=== PATIENT | male | born 1960 | race Caucasian/White ===

== ENCOUNTER 2018-08-29 16:36 | Observation (INO) | payer OTHER ==
--- NOTE | 2018-08-29 16:43 | ED ---
Chest Pain HPI - General Stated Complaint: Chest pain Source: RN notes reviewed, old records reviewed - History of Present Illness Initial Comments: This is a 57-year-old male to the ER for evaluation. Patient has a for evaluation regards to chest pain patient is accepted in transfer for chest pain. Patient has possible EKG changes. Patient denies significant history of heart disease. Patient denies any significant risk factors for heart disease. MD Complaint: chest pain -: hour(s) (Prior to arrival, patient is accepted in transfer from [facility]) Onset: during rest Pain Location: substernal Pain Radiation: none Severity: moderate Severity scale (1-10): 3 Quality: aching Consistency: now resolved Improves With: nothing Worsens With: nothing Anginal Symptoms: other (None) Other Symptoms: other (None) Treatments Prior to Arrival: aspirin, nitroglycerin - Related Data Home Medications Medication Instructions Recorded Confirmed Aspirin EC [Ecotrin] 325 mg PO DAILY 08/29/18 08/29/18 Atenolol [Tenormin] 25 mg PO BID 08/29/18 08/29/18 Atorvastatin [Lipitor] 80 mg PO DAILY 08/29/18 08/29/18 Nitroglycerin Sl Tabs [Nitrostat] 0.4 mg SUBLINGUAL Q5M PRN 08/29/18 08/29/18 Allergies Allergy/AdvReac Type Severity Reaction Status Date / Time No Known Allergies Allergy Verified 08/29/18 16:52 Review of Systems ROS Statement: Those systems with pertinent positive or pertinent negative responses have been documented in the HPI. ROS Other: All systems not noted in ROS Statement are negative. EKG Findings - EKG Comments: EKG Findings:: EKG shows sinus tachycardia rate 109, SD 1:30, QRS 04, QTc 460. A she does have lateral ST depression. Repeat EKG shows no morphological changes General Exam General appearance: alert, in no apparent distress Head exam: Present: atraumatic, normocephalic, normal inspection Eye exam: Present: normal appearance, PERRL, EOMI. Absent: scleral icterus, conjunctival injection, periorbital swelling ENT exam: Present: normal exam, mucous membranes moist Neck exam: Present: normal inspection. Absent: tenderness, meningismus, lymphadenopathy Respiratory exam: Present: normal lung sounds bilaterally. Absent: respiratory distress, wheezes, rales, rhonchi, stridor Cardiovascular Exam: Present: regular rate, normal rhythm, normal heart sounds. Absent: systolic murmur, diastolic murmur, rubs, gallop, clicks GI/Abdominal exam: Present: soft, normal bowel sounds. Absent: distended, tenderness, guarding, rebound, rigid Extremities exam: Present: normal inspection, full ROM, normal capillary refill. Absent: tenderness, pedal edema, joint swelling, calf tenderness Back exam: Present: normal inspection Neurological exam: Present: alert, oriented X3, CN II-XII intact Psychiatric exam: Present: normal affect, normal mood Skin exam: Present: warm, dry, intact, normal color. Absent: rash Course Vital Signs 08/29/18 08/29/18 08/29/18 16:52 19:08 19:41 Temperature 97.8 F Pulse Rate 107 H 101 H Respiratory 18 18 19 Rate Blood Pressure 157/112 143/103 O2 Sat by Pulse 100 97 Oximetry 08/29/18 20:08 Temperature Pulse Rate 87 Respiratory 17 Rate Blood Pressure 122/79 O2 Sat by Pulse 96 Oximetry - Reevaluation(s) Reevaluation #1: Record and transfer paperwork is reviewed Patient remains without chest pain Chest Pain MDM - MDM 57 male the ER for evaluation chest pain. Patient be admitted for anticoagulation, cardiac observation and treatment, troponin is mildly elevated 0.05, patient is a significant EKG changes Critical Care Time Critical Care Time: Yes Total Critical Care Time: 31 Disposition Clinical Impression: Chest pain, Unstable angina pectoris Disposition: ADMITTED IP TO THIS HOSP Condition: Fair Is patient prescribed a controlled substance at d/c from ED?: No
[2018-08-29 17:10] LABS: Basophils % (A) 0 %; Eosinophils # (A) 0.1 k/uL (0-0.7); Eosinophils % (A) 2 %; HCT 45.2 % (39.0-53.0); HGB 15.2 gm/dL (13.0-17.5); Lymphocytes % (A) 40 %; MCH 32.6 pg (25.0-35.0); MCHC 33.6 g/dL (31.0-37.0); Mean Platelet Volume 7.9; Monocytes # (A) 0.5 k/uL (0-1.0); Monocytes % (A) 6 %; Neutrophils # (A) 3.8 k/uL (1.3-7.7); Neutrophils % (A) 50 %; Platelet Count 140 k/uL (150-450); RBC 4.66 m/uL (4.30-5.90); RDW 13.5 % (11.5-15.5); WBC 7.5 k/uL (3.8-10.6)
[2018-08-29 17:19] LABS: INR 1.1 (<1.2); Prothrombin Time 10.9 sec (9.0-12.0)
[2018-08-29 17:24] LABS: ALT 20 U/L (21-72); AST 40 U/L (17-59); Albumin 3.8 g/dL (3.5-5.0); Alkaline Phosphatase 48 U/L (38-126); Anion Gap 8 mmol/L; Blood Urea Nitrogen 17 mg/dL (9-20); Carbon Dioxide 23 mmol/L (22-30); Chloride 108 mmol/L (98-107); Glucose 88 mg/dL (74-99); Magnesium 2.2 mg/dL (1.6-2.3); Sodium 139 mmol/L (137-145); Total Bilirubin 1.2 mg/dL (0.2-1.3); Total Protein 7.8 g/dL (6.3-8.2)
[2018-08-29 17:26] LABS: Potassium 5.4 mmol/L (3.5-5.1)
[2018-08-29 17:52] LABS: Creatine Kinase MB 2.8 ng/mL (0.0-2.4); Partial Thromboplastin Time 79.5 sec (22.0-30.0)
[2018-08-29 17:57] LABS: Troponin I 0.057 ng/mL (0.000-0.034)
[2018-08-29] MEDS ORDERED: NITROGLYCERIN SL TABS 0.4 MG TAB SUBLINGUAL PRN (18:07)
[2018-08-29] MEDS ORDERED: LABETALOL 5 MG/ML VIAL MDV IVP STA (18:58)
[2018-08-29 21:58] LABS: Creatine Kinase MB 2.2 ng/mL (0.0-2.4)
[2018-08-29] MEDS: METOPROLOL TARTRATE 25 MG TAB PO SCH (22:23)
[2018-08-29 22:24] LABS: Troponin I 0.052 ng/mL (0.000-0.034)
[2018-08-29] MEDS ORDERED: NALOXONE 0.4 MG/ML 1 ML VIAL IV PRN (23:42)
[2018-08-29] MEDS ORDERED: CALCIUM CARBONATE 500 MG CHEWABLE PO PRN (23:42)
[2018-08-29] MEDS ORDERED: ACETAMINOPHEN TAB 325 MG TAB PO PRN (23:42)
[2018-08-29] MEDS ORDERED: LORazepam 0.5 MG TAB PO PRN (23:42)
[2018-08-29] MEDS ORDERED: MAGNESIUM HYDROXIDE 2,400 MG/10 ML CUP PO PRN (23:42)
[2018-08-29] MEDS ORDERED: ONDANSETRON 4 MG/2 ML VIAL IVP PRN (23:42)
[2018-08-30] MEDS ORDERED: LACTULOSE 20 GM/30 ML CUP PO PRN
[2018-08-30] MEDS ORDERED: MELATONIN 3 MG TABLET PO PRN
[2018-08-30] MEDS: IPRATROPIUM-ALBUTEROL 3 ML NEB INHALATION SCH ×5 (00:02→19:19)
[2018-08-30] MEDS: NICOTINE 7MG/24HR PATCH TRANSDERM SCH ×2 (01:00→23:13)
--- NOTE | 2018-08-30 01:06 | HP ---
HISTORY AND PHYSICAL DATE OF ADMISSION: August 29, 2018. DATE OF SERVICE: August 29, 2018. PRESENTING COMPLAINT: Lightheaded. HISTORY OF PRESENTING COMPLAINT: This is a very pleasant 57-year-old patient who follows with Dr. Duane Young. The patient had a stent and coronary stent done back in 1988. Also chronic stable medical conditions include hypertension, hyperlipidemia. The patient had an episode of nearly passing out, felt lightheaded, dizzy today. No chest pain, no palpitation. No shortness of breath. The patient has had some wheezing though. The patient does smoke 2-3 cigarettes a day. Was a heavy smoker for a long time. The patient was seen at [facility]. Did chest x-ray that was unremarkable. EKG was found to have some ST-segment changes inferior lateral leads. The patient is transferred over. Patient's troponin was 0.058. The patient does feel a bit tired and run down. REVIEW OF SYSTEMS: CONSTITUTIONAL: Tired. HEENT decreased hearing. RESPIRATORY: Some wheezing. CARDIOVASCULAR: No chest pain. GASTROINTESTINAL none. GENITOURINARY none. MUSCULOSKELETAL none. DERMATOLOGICAL, HEMATOLOGIC, LYMPHATICS: none. PSYCHIATRY none. NEUROLOGICAL: None. PAST MEDICAL HISTORY: Of hypertension, hyperlipidemia, coronary artery disease with stent back in 1988. PAST SURGICAL HISTORY: Cardiac cath with stent. SOCIAL HISTORY: The patient currently does lumber work. Smoked a pack a day for close to 40 years. About averaged about a pack a day now down to 2 cigarettes a day. Lives with sister. FAMILY HISTORY: Reviewed, noncontributory presentation. HOME MEDICATIONS: 1. Nitrostat 0.4 sublingual q.5 p.r.n. 2. Lipitor 80 mg a day. 3. Tenormin 25 mg b.i.d. 4. Aspirin 325 mg daily. ALLERGIES: None. PHYSICAL EXAMINATION: VITAL SIGNS: Temperature 97.8, pulse 107, respiratory 18, blood pressure 157/112, pulse 100 percent on room air. GENERAL APPEARANCE: Thin build, sitting up, tired-appearing. EYES: Pupils equal. Conjunctivae normal. HEENT: External appearance of nose and ears normal. Oral cavity normal. NECK JVD not raised. Mass not palpable. RESPIRATORY: Effort slightly increased. LUNGS: Decreased breath sounds. Prolonged expiration. Some wheezing. CARDIOVASCULAR: First and second sounds, no edema. ABDOMEN: Soft, nontender. Liver and spleen not palpable. LYMPHATICS: No lymph nodes palpable in the neck or axilla. PSYCHIATRY: Alert and oriented x3. Mood and affect normal. NEUROLOGICAL: Pupils equal. Cranial nerves grossly intact. Power and sensation grossly intact. INVESTIGATIONS: Investigations from [facility] showed a white count of 8, hemoglobin 16.2, platelets 144, potassium 4.4, BUN 18, creatinine 1.0. Troponin 0.058. Chest x-ray reported to be negative. EKG shows ST-segment to be flipped and depressed in inferolateral leads. EKG from here was personally reviewed by me showing T-waves in the lateral leads. ASSESSMENT: 1. Acute coronary syndrome, possibly in a patient known coronary artery disease manifesting as new lightheadedness with some troponin leak with EKG changes. 2. Coronary artery disease with prior history of stent. 3. Essential hypertension. 4. Hyperlipidemia. 5. Chronic obstructive pulmonary disease exacerbation in a current smoker. 6. Chronic nicotine dependence, patient is a smoker. PLAN: The patient is started on bronchodilators, inhaled steroids. The patient is on aspirin and Lopressor. The patient currently has no chest pain. Off aspirin. Cardiology was consulted. The patient will probably need a cardiac catheterization. Care was discussed with the patient. Questions were answered. Copy to Dr. Duane Young. MMROSEMARIEL / MOOSEN: [id number] /
[2018-08-30] MEDS: ENOXAPARIN 40 MG/0.4 ML SYRINGE SQ SCH ×2 (01:42→21:27)
[2018-08-30 04:49] VITALS: BMI 23.1
[2018-08-30 05:04] LABS: Cholesterol 243 mg/dL (<200); HDL Cholesterol 29 mg/dL (40-60); LDL Cholesterol,Calculated 198 mg/dL (0-99); Triglycerides 81 mg/dL (<150)
[2018-08-30 05:49] LABS: Creatine Kinase MB 2.2 ng/mL (0.0-2.4)
[2018-08-30 06:21] LABS: Troponin I 0.041 ng/mL (0.000-0.034)
[2018-08-30] MEDS: METOPROLOL TARTRATE 25 MG TAB PO SCH ×2 (07:52→21:27)
[2018-08-30] MEDS: ASPIRIN 325 MG TAB PO SCH (07:52)
--- NOTE | 2018-08-30 09:04 | XR ---
EXAMINATION TYPE: XR chest 2V DATE OF EXAM: 08/30/2018 COMPARISON: NONE HISTORY: Shortness of breath. TECHNIQUE: Frontal and lateral views of the chest are obtained. FINDINGS: There are patchy interstitial opacities throughout most pronounced within the right lower lobe also seen on the lateral image in the retrocardiac airspace. No flattening of the diaphragms is seen to suggest underlying COPD. No bullous emphysematous changes are noted. Cardiomediastinal silhou ette is upper limits of normal in size. Osseous structures appear intact. No pleural effusion or pneu mothorax. IMPRESSION: Scattered patchy opacities most pronounced within the right lower lobe. These could be o n the basis of atypical pneumonitis, pulmonary edema or less likely groundglass pulmonary nodules. Sh ort-term follow-up is recommended to ensure resolution. If persistent CT would be recommended.
[2018-08-30] MEDS: BUDESONIDE 1 MG/2 ML NEBU INHALATION SCH ×2 (10:59→19:19)
--- NOTE | 2018-08-30 12:04 | ECHOF ---
Referral Reason:cad MEASUREMENTS -------- HEIGHT: 157.5 cm WEIGHT: 75.3 kg BP: 126/88 RVIDd: 2.9 cm (< 3.3) IVSd: 1.3 cm (0.6 - 1.1) LVIDd: 5.8 cm (3.9 - 5.3) LVPWd: 1.2 cm (0.6 - 1.1) IVSs: 1.4 cm LVIDs: 5.7 cm LVPWs: 1.2 cm LA Diam: 3.6 cm (2.7 - 3.8) LAESV Index (A-L): 43.87 ml/m Ao Diam: 3.3 cm (2.0 - 3.7) AV Cusp: 1.6 cm (1.5 - 2.6) LA Diam: 3.8 cm (2.7 - 3.8) MV EXCURSION: 16.659 mm (> 18.000) MV EF SLOPE: 69 mm/s (70 - 150) EPSS: 1.7 cm MV E Vasiliy: 0.75 m/s MV DecT: 113 ms MV A Vasiliy: 0.53 m/s MV E/A Ratio: 1.41 AR PHT: 417 ms RAP: 5.00 mmHg RVSP: 59.70 mmHg FINDINGS -------- Sinus rhythm. This was a technically adequate study. The left ventricular size is normal. There is mild concentric left ventricular hypertrophy. There is severe global hypokinesis of LV . Overall left ventricular systolic function is severely impair ed with, an EF < 20%. The right ventricle is normal in size. LA is severely dilated >40 ml/m2 The right atrial size is normal. The aortic valve is trileaflet and appears structurally normal. There is mild aortic regurgitation. Mild mitral annular calcification present. Mild mitral regurgitation is present. Moderate tricuspid regurgitation present. There is moderate pulmonary hypertension. The right sheyla tricular systolic pressure, as measured by Doppler, is 59.70mmHg. There is no pulmonic regurgitation present. The aortic root size is normal. There is no pericardial effusion. CONCLUSIONS -------- 1. Sinus rhythm. 2. The left ventricular size is normal. 3. There is mild concentric left ventricular hypertrophy. 4. There is severe global hypokinesis of LV . 5. Overall left ventricular systolic function is severely impaired with, an EF < 20%. 6. The right ventricle is normal in size. 7. LA is severely dilated >40 ml/m2 8. The right atrial size is normal. 9. There is mild aortic regurgitation. 10. Mild mitral annular calcification present. 11. Mild mitral regurgitation is present. 12. Moderate tricuspid regurgitation present. 13. There is moderate pulmonary hypertension. 14. There is no pulmonic regurgitation present. 15. The aortic root size is normal. 16. There is no pericardial effusion. MODEL BUILDER DISPLAY: Litzy James RDCS
--- NOTE | 2018-08-30 13:55 | P.CRDCN ---
History of Present Illness Consult date: 08/30/18 History of present illness: This is a 57-year-old gentleman with history of ischemic heart disease with previous stent placement that was done several years ago. Patient follows with Dr. Mcdonough regularly. He had an echocardiogram done in 2016 which showed an ejection fraction of 45-50%. He had a nuclear stress test in 2017 which showed a fixed defect involving the anterior and inferior byers without any reversible ischemia and an ejection fraction of about 30% suggestive of ischemic cardio myopathy. Patient has been clinically stable. Apparently recently, patient was having cold-like symptoms and was planning to see a physician. Yesterday he was doing something bending over, carrying some lumbar, patient started feeling dizzy and lightheaded. Denied any chest pain. Denied any nausea or vomiting. Patient went and sat for a while with relief of symptoms within 5 minutes. Because of ongoing symptoms, he went to see the primary care physician. EKG in the office showed abnormal findings and patient was referred to [facility] emergency room. In the emergency room, EKG was again abnormal and troponin values are elevated. Patient was transferred here for further evaluation. Since that one episode of dizziness, patient has been feeling well. His chest x-ray showed possible CHF versus pneumonia. His echo showed severely impaired LV function with an ejection fraction of 20%. At the time of my examination patient is free of any symptoms. My feeling is that patient has symptoms of congestive heart failure and shortness of breath. His dizziness could be from possible postural hypotension. I will add small dose of Lasix and Aldactone along with lisinopril. We'll may change metoprolol to Coreg. Patient may be a candidate for AICD implantation. Further recommendation will depend upon clinical course. May consider cardiac catheterization before AICD implantation to rule out any ischemic heart disease that is amenable for intervention Review of Systems As per HPI, and chart Past Medical History Past Medical History: No Reported History, Myocardial Infarction (PA) Last Myocardial Infarction Date:: 1988 History of Any Multi-Drug Resistant Organisms: None Reported Past Surgical History: Heart Catheterization With Stent Past Anesthesia/Blood Transfusion Reactions: No Reported Reaction Date of Last Stent Placement:: 1988 Past Psychological History: No Psychological Hx Reported Smoking Status: Current some day smoker Past Alcohol Use History: Daily Past Drug Use History: None Reported Medications and Allergies Home Medications Medication Instructions Recorded Confirmed Type Aspirin EC [Ecotrin] 325 mg PO DAILY 08/29/18 08/29/18 History Atenolol [Tenormin] 25 mg PO BID 08/29/18 08/29/18 History Atorvastatin [Lipitor] 80 mg PO DAILY 08/29/18 08/29/18 History Nitroglycerin Sl Tabs [Nitrostat] 0.4 mg SUBLINGUAL Q5M PRN 08/29/18 08/29/18 History Allergies Allergy/AdvReac Type Severity Reaction Status Date / Time No Known Allergies Allergy Verified 08/29/18 16:52 Physical Exam Vitals: Vital Signs Temp Pulse Pulse Resp BP BP Pulse Ox 08/30/18 12:14 74 08/30/18 12:02 78 08/30/18 12:00 97.3 F L 94 147/101 99 08/30/18 07:56 97.8 F 92 18 133/99 98 08/30/18 07:51 68 08/30/18 07:43 75 08/30/18 04:00 89 18 126/88 98 08/30/18 02:46 97.1 F L 71 16 122/78 99 08/29/18 23:00 84 119/91 08/29/18 22:00 123/86 08/29/18 21:00 126/77 97 08/29/18 20:08 87 17 122/79 96 08/29/18 20:00 83 124/91 97 08/29/18 19:41 19 08/29/18 19:08 101 H 18 143/103 97 08/29/18 19:00 101 H 143/103 99 08/29/18 18:51 89 18 126/88 98 08/29/18 18:44 98 157/112 98 08/29/18 16:52 97.8 F 107 H 18 157/112 100 Intake and Output 08/29/18 08/30/18 08/30/18 22:59 06:59 14:59 Other: Voiding Method Toilet Toilet Weight 75.45 kg GENERAL EXAM: Patient is alert and oriented and doesn't appear to be in any acute distress HEENT: Normocephalic. Normal reaction of pupils, equal size, normal range of extraocular motion. No erythema or exudates in the throat. NECK: No masses, no nuchal rigidity. CHEST: No chest wall deformity. LUNGS: Equal air entry with no crackles or wheeze. HEART: S1 and S2 normal with no audible mumurs or gallops. Regular rhythm, femorals equal on both sides.. ABDOMEN: No hepatosplenomegaly, normal bowel sounds, no guarding or rigidity. SKIN: No rashes CENTRAL NERVOUS SYSTEM: No focal deficits. EXTREMITIES: No cyanosis, clubbing or edema. Results 08/29/18 15:50 08/29/18 15:50 Cardiac Enzymes 08/29/18 08/29/18 08/29/18 Range/Units 15:50 15:50 21:14 AST 40 (17-59) U/L CK-MB (CK-2) 2.8 H 2.2 (0.0-2.4) ng/mL Troponin I 0.057 H* 0.052 H* (0.000-0.034) ng/mL 08/30/18 Range/Units 04:30 AST (17-59) U/L CK-MB (CK-2) 2.2 (0.0-2.4) ng/mL Troponin I 0.041 H* (0.000-0.034) ng/mL Coagulation 08/29/18 Range/Units 15:50 PT 10.9 (9.0-12.0) sec APTT 79.5 H (22.0-30.0) sec Lipids 08/30/18 Range/Units 04:30 Triglycerides 81 (<150) mg/dL Cholesterol 243 H (<200) mg/dL HDL Cholesterol 29 L (40-60) mg/dL CBC 08/29/18 Range/Units 15:50 WBC 7.5 (3.8-10.6) k/uL RBC 4.66 (4.30-5.90) m/uL Hgb 15.2 (13.0-17.5) gm/dL Hct 45.2 (39.0-53.0) % Plt Count 140 L (150-450) k/uL Comprehensive Metabolic Panel 08/29/18 Range/Units 15:50 Sodium 139 (137-145) mmol/L Potassium 5.4 H (3.5-5.1) mmol/L Chloride 108 H (98-107) mmol/L Carbon Dioxide 23 (22-30) mmol/L BUN 17 (9-20) mg/dL Creatinine 0.88 (0.66-1.25) mg/dL Glucose 88 (74-99) mg/dL Calcium 9.0 (8.4-10.2) mg/dL AST 40 (17-59) U/L ALT 20 L (21-72) U/L Alkaline Phosphatase 48 (38-126) U/L Total Protein 7.8 (6.3-8.2) g/dL Albumin 3.8 (3.5-5.0) g/dL Current Medications Generic Name Dose Route Start Last Admin Trade Name Freq PRN Reason Stop Dose Admin Acetaminophen 650 mg 08/29/18 23:42 Tylenol Tab PO Q6HR PRN Mild Pain or Fever > 100.5 Albuterol/Ipratropium 3 ml 08/29/18 23:43 08/30/18 12:02 Duoneb 0.5 Mg-3 Mg/3 Ml Soln INHALATION 3 ml RT-QID [facility] Administration Aspirin 325 mg 08/30/18 09:00 08/30/18 07:52 Aspirin PO 325 mg DAILY [facility] Administration Budesonide 1 mg 08/30/18 08:00 08/30/18 10:59 Pulmicort INHALATION Not Given RT-BID [facility] Calcium Carbonate/Glycine 1,000 mg 08/29/18 23:42 Tums PO Q4HR PRN Dyspepsia Enoxaparin Sodium 40 mg 08/30/18 00:00 08/30/18 01:42 Lovenox SQ 40 mg DAILY@2100 [facility] Administration Furosemide 20 mg 08/30/18 16:00 Lasix PO BID@0900,1600 [facility] Lactulose 20 gm 08/30/18 00:00 Cephulac PO DAILY PRN Constipation Lisinopril 5 mg 08/30/18 14:00 Zestril PO DAILY [facility] Lorazepam 0.5 mg 08/29/18 23:42 Ativan PO Q6HR PRN Anxiety Magnesium Hydroxide 2,400 mg 08/29/18 23:42 Milk Of Magnesia PO DAILY PRN Constipation Melatonin 3 mg 08/30/18 00:00 Melatonin PO HS PRN Insomnia Metoprolol Tartrate 25 mg 08/29/18 21:00 08/30/18 07:52 Lopressor PO 25 mg BID [facility] Administration Naloxone HCl 0.2 mg 08/29/18 23:42 Narcan IV Q2M PRN Opioid Reversal Nicotine 1 patch 08/30/18 00:00 08/30/18 01:00 Habitrol 7mg/24hr Patch TRANSDERM 1 patch DAILY@2100 [facility] Administration Nitroglycerin 0.4 mg 08/29/18 18:07 Nitrostat SUBLINGUAL Q5M PRN Chest Pain Ondansetron HCl 4 mg 08/29/18 23:42 Zofran IVP Q8HR PRN Nausea And Vomiting Spironolactone 12.5 mg 08/30/18 14:00 Aldactone PO DAILY [facility] Intake and Output 08/29/18 08/30/18 08/30/18 22:59 06:59 14:59 Other: Voiding Method Toilet Toilet Weight 75.45 kg 08/29/18 15:50 08/29/18 15:50 EKG Interpretations (text) Sinus rhythm with diffuse ST-T changes which appear to be nonspecific Assessment and Plan (1) Dizziness Current Visit: Yes Status: Acute Code(s): R42 - DIZZINESS AND GIDDINESS SNOMED Code(s): 565488178 (2) Ischemic cardiomyopathy Current Visit: Yes Status: Acute Code(s): I25.5 - ISCHEMIC CARDIOMYOPATHY SNOMED Code(s): 422545215 (3) Elevated troponin Current Visit: Yes Status: Acute Code(s): R74.8 - ABNORMAL LEVELS OF OTHER SERUM ENZYMES SNOMED Code(s): 136171043 (4) Hypertension Current Visit: Yes Status: Acute Code(s): I10 - ESSENTIAL (PRIMARY) HYPERTENSION SNOMED Code(s): 59604826 (5) Coronary arteriosclerosis in patient with history of previous myocardial infarction Current Visit: Yes Status: Acute Code(s): I25.10 - ATHSCL HEART DISEASE OF [place] CORONARY ARTERY W/O ANG PCTRS; I25.2 - OLD MYOCARDIAL INFARCTION SNOMED Code(s): 574892574977747 Plan: I will continue current medical therapy. I will add small dose of diuretics along with Aldactone and lisinopril. May switch from metoprolol to Coreg. Further recommendations depend upon clinical course. Patient may be candidate for AICD implantation. May consider putting Cardec catheterization to rule out any coronary artery disease that is amenable for intervention
[2018-08-30] MEDS: LISINOPRIL 5 MG TAB PO SCH (15:31)
[2018-08-30] MEDS: SPIRONOLACTONE 25 MG TAB PO SCH (15:31)
[2018-08-30] MEDS: FUROSEMIDE 20 MG TAB PO SCH (17:07)
--- NOTE | 2018-08-31 00:25 | PN ---
PROGRESS NOTE DATE OF SERVICE: 08/30/2018. PRESENTING COMPLAINT: Light headed. INTERVAL HISTORY: This patient presented with an episode of being lightheaded. Found to have EKG changes. A 2-D echo is showing an EF of less than 20%. Cardiology is contemplating cardiac catheterization/AICD. Sitting up in bed. Did tolerate some diet. REVIEW OF SYSTEMS: Done for constitutional, cardiovascular, GI, pulmonary; relevant findings as above. CURRENT MEDICATIONS: Reviewed, that include p.o. Lasix, KIKE inhibitor, Lopressor Aldactone. PHYSICAL EXAMINATION: Temperature 97.1, pulse 102, respiratory rate 18, blood pressure 130/87, pulse ox 99% on room air. GENERAL APPEARANCE: Sitting at the edge of bed, awake. EYES: Pupils equal. Conjunctivae normal. NECK: JVD not raised. Mass not palpable. Respiratory effort normal. LUNGS: Decreased breath sounds. Prolonged expiration. Less wheezing. CARDIOVASCULAR: First and second sounds normal. No edema. ABDOMEN: Soft, nontender. Liver and spleen not palpable. PSYCHIATRY: Alert and oriented x3. Mood and affect normal. INVESTIGATIONS: A 2D echo showed EF of 20%, severe tricuspid regurgitation. Troponins noted. LDL 198. ASSESSMENT: 1. Acute coronary syndrome in a patient with known coronary artery disease and troponin leak. The patient probably needs a cardiac catheterization. 2. Coronary artery disease, prior history of stent. 3. Essential hypertension. 4. Hyperlipidemia. 5. Chronic obstructive pulmonary disease exacerbation in a current smoker. 6. Chronic nicotine dependence, patient is a smoker. 7. Next ischemic cardiomyopathy, ejection fraction less than 20%. 8. Severe tricuspid regurgitation, nonrheumatic. 9. Secondary pulmonary hypertension due to congestive heart failure and chronic obstructive pulmonary disease. PLAN: Continue current medication and treatment plan. The patient will need a cardiac catheterization, also possibly an AICD. Care was discussed with the patient and at the bedside. Will let Cardiology determine final course of action. MMODL / IJN: [id number] /
[2018-08-31] MEDS: IPRATROPIUM-ALBUTEROL 3 ML NEB INHALATION SCH ×3 (08:21→15:45)
[2018-08-31] MEDS: BUDESONIDE 1 MG/2 ML NEBU INHALATION SCH (08:21)
[2018-08-31] MEDS: FUROSEMIDE 20 MG TAB PO SCH (08:50)
[2018-08-31] MEDS: METOPROLOL TARTRATE 25 MG TAB PO SCH (08:50)
[2018-08-31] MEDS: ASPIRIN 325 MG TAB PO SCH (08:50)
--- NOTE | 2018-08-31 10:29 | P.PN ---
Subjective Progress Note Date: 08/31/18 This 57-year-old gentleman was admitted to the hospital mainly with complaints of dizziness. Patient's proBNP is elevated. His echo showed severe LV dysfunction with ejection fraction of 20%. A nuclear stress test done last year showed a fixed defect in the anterior wall and inferior wall with an ejection fraction of 30%. It appears that patient has a chronic ischemic cardiomyopathy and congestive heart failure. Patient was initiated on beta mau, KIKE inhibitor and diuretics. Patient is feeling better. He and his blood pressures running low. We'll increase activity. Because of his ischemic cardiomyopathy. I discussed with him about the AICD implantation and also cardiac catheterization. Patient wants to talk to the family. Depending upon the patient's of the patient and family, further recommendations will be made Objective - Vital Signs Vital signs: Vital Signs Temp 96.7 F L 08/31/18 08:00 Pulse 56 L 08/31/18 08:37 Resp 18 08/31/18 08:00 BP 97/59 08/31/18 08:00 Pulse Ox 100 08/31/18 08:00 Intake & Output 08/30/18 08/31/18 08/31/18 18:59 06:59 18:59 Intake Total 360 120 Output Total 0 0 Balance 360 0 120 Weight 70.6 kg Intake: Oral 360 120 Output: Urine 0 0 Other: Voiding Method Toilet Toilet # Voids 1 - Exam GENERAL EXAM: Patient is alert and oriented and doesn't appear to be in any acute distress HEENT: Normocephalic. Normal reaction of pupils, equal size, normal range of extraocular motion. No erythema or exudates in the throat. NECK: No masses, no nuchal rigidity. CHEST: No chest wall deformity. LUNGS: Equal air entry with no crackles or wheeze. HEART: S1 and S2 normal with no audible mumurs or gallops. Regular rhythm, femorals equal on both sides.. ABDOMEN: No hepatosplenomegaly, normal bowel sounds, no guarding or rigidity. SKIN: No rashes CENTRAL NERVOUS SYSTEM: No focal deficits. EXTREMITIES: No cyanosis, clubbing or edema. - Labs CBC & Chem 7: 08/29/18 15:50 08/29/18 15:50 Assessment and Plan (1) Dizziness Current Visit: Yes Status: Acute Code(s): R42 - DIZZINESS AND GIDDINESS SNOMED Code(s): 973747445 (2) Ischemic cardiomyopathy Current Visit: Yes Status: Acute Code(s): I25.5 - ISCHEMIC CARDIOMYOPATHY SNOMED Code(s): 845949684 (3) Elevated troponin Current Visit: Yes Status: Acute Code(s): R74.8 - ABNORMAL LEVELS OF OTHER SERUM ENZYMES SNOMED Code(s): 207425492 (4) Hypertension Current Visit: Yes Status: Acute Code(s): I10 - ESSENTIAL (PRIMARY) HYPERTENSION SNOMED Code(s): 31865870 (5) Coronary arteriosclerosis in patient with history of previous myocardial infarction Current Visit: Yes Status: Acute Code(s): I25.10 - ATHSCL HEART DISEASE OF [place] CORONARY ARTERY W/O ANG PCTRS; I25.2 - OLD MYOCARDIAL INFARCTION SNOMED Code(s): 569912674277448 Plan: We'll increase his activity. Continue to monitor for any arrhythmias. Continue to check for any postural hypotension. He patient is stable he could be discharged home and be planned to have outpatient cardiac catheterization and also AICD implantation.
[2018-08-31 10:58] LABS: Calcium 9.3 mg/dL (8.4-10.2); Potassium 4.8 mmol/L (3.5-5.1)
[2018-08-31] MEDS: LISINOPRIL 5 MG TAB PO SCH (11:13)
[2018-08-31] MEDS: SPIRONOLACTONE 25 MG TAB PO SCH (11:13)
[2018-08-31 15:20] VITALS: BP 120/82; RESP 17; TEMP 97.4
[2018-08-31 16:04] VITALS: PULSE 85
[2018-09-01] MEDS ORDERED: FUROSEMIDE 20 MG TAB PO SCH (09:00)
--- NOTE | 2018-09-03 07:08 | DS ---
DISCHARGE SUMMARY DATE OF ADMISSION: 08/29/2018 DATE OF DISCHARGE: 08/31/2018 FINAL DIAGNOSES: 1. Acute coronary syndrome with underlying coronary artery disease. 2. Coronary artery prior stent. 3. Essential hypertension. 4. Hyperlipidemia. 5. Chronic obstructive pulmonary disease in a current smoker. 6. Chronic nicotine dependence, patient is a cigarette smoker. 7. Ischemic cardiomyopathy from systolic dysfunction, ejection fraction less than 20%. 8. Moderate tricuspid regurgitation, nonrheumatic. 9. Moderate pulmonary hypertension, secondary. HOSPITAL COURSE: This pleasant 57-year-old patient of Dr. Duane Young with a coronary stent back in 1988, presented with near syncope, lightheaded, dizzy. Patient does smoke a few cigarettes more so in the past. A 2D echo showed the EF as above, seen by Dr. Deras. An outpatient cardiac catheterization is being planned with AICD. Otherwise, patient is relatively stable. PHYSICAL EXAMINATION: Temperature 97.4, pulse 85, respiration 17, blood pressure 120/82, pulse ox 98% on room air room air. Lungs with decreased breath sounds, prolonged expiration. CARDIOVASCULAR: First and second sounds are normal. No edema. INVESTIGATIONS: Potassium 4.8, BUN and creatinine are normal. ProBNP is 5860. Patient did have a troponin leak of 0.041. LDL is 198. CONSULTATION: Dr. Deras from Cardiology. DISCHARGE MEDICATIONS: 1. Lipitor 80 mg a day. 2. Nitrostat 0.4 sublingual q.5 p.r.n. 3. Ventolin 1-2 puffs q.6 p.r.n. 4. Aspirin 81 mg a day. 5. Lasix 20 mg a day. 6. Atrovent HFA 2 puffs q.i.d. 7. Zestril 5 mg a day. 8. Lopressor 25 mg b.i.d. 9. Nicotine 7 patch daily. 10.Aldactone 12.5 mg p.o. daily. Follow up with Dr. Duane Young in 1 week. Follow up with Dr. Humberto Mcdonough on 09/12/2012. Cardiology will arrange for outpatient cardiac catheterization and AICD. MMODL / MOOSEN: [id number] /
== END 2018-08-31 17:00 | disposition home or self-care (01) ==
LOC: EC 16:36 → 3SCARD 18:07
PROVIDERS: ADMIT Hospitalist; ATTEND Hospitalist
DX: I24.9 Acute ischemic heart disease, unspecified (principal); I25.110 Atherosclerotic heart disease of native coronary artery with unstable angina pectoris; I11.0 Hypertensive heart disease with heart failure; I50.9 Heart failure, unspecified; F17.210 Nicotine dependence, cigarettes, uncomplicated; Z95.5 Presence of coronary angioplasty implant and graft; I25.5 Ischemic cardiomyopathy; I25.2 Old myocardial infarction; E78.5 Hyperlipidemia, unspecified; I36.1 Nonrheumatic tricuspid (valve) insufficiency; J44.1 Chronic obstructive pulmonary disease with (acute) exacerbation; I27.20 Pulmonary hypertension, unspecified; Z79.82 Long term (current) use of aspirin; Z79.899 Other long term (current) drug therapy
CPT/HCPCS: 99291 ×2; 96374 ×2; 96372 ×3; 36415; 94640 ×3; 93306; 83880; 80061; 80053; 80048; 82550 ×2; 82553 ×2; 83735; 84484 ×2; 85025; 85610; 85730; 71046; G0378 ×3; S4990; J1650

== ENCOUNTER 2018-09-27 06:17 | Day surgery (SDC) | payer OTHER ==
[~2018-09-27 06:17] MED LIST: ALPRAZolam 0.25 MG TAB PO PRN; ALPRAZolam 0.5 MG TAB PO PRN; ASPIRIN 325 MG TAB PO ONE; ASPIRIN 325 MG TAB PO STA; ATORVASTATIN 80 MG TAB PO STA; NITROGLYCERIN SL TABS 0.4 MG TAB SUBLINGUAL PRN; SODIUM CHLORIDE 0.9% 1,000 ML in EMPTY BAG 1 BAG IV ONE
[2018-09-27] MEDS ORDERED: SODIUM CHLORIDE 0.9% 1,000 ML IV ONE ×2 (07:10→09:00)
[2018-09-27] MEDS ORDERED: MIDAZOLAM 2 MG/2 ML VIAL IV ONE (07:42)
[2018-09-27] MEDS ORDERED: fentaNYL (PF) 50 MCG/ML 2 ML AMP IV ONE (07:42)
[2018-09-27] MEDS ORDERED: LIDOCAINE 1% INJ 10MG/ML (20 ML MDV) SQ ONE ×4 (07:44→08:18)
[2018-09-27] MEDS ORDERED: HEPARIN SODIUM 1,000 UN/ML (10ML VL) IV ONE (08:25)
--- NOTE | 2018-09-27 08:26 | CC ---
CARDIAC CATHETERIZATION REPORT INDICATION: Cardiomyopathy. PROCEDURE NOTE: After obtaining informed consent, left heart catheterization was attempted initially with the right femoral artery and subsequently with the left femoral artery. The patient has heavily calcified femoral arteries and the pulses are feeble. We were not able to obtain vascular access on either side. I am going to have Dr. Quigley the on-call adobe flex developer attempt a radial cath on him. MMDYLON / MOOSEN: [id number] /
[2018-09-27] MEDS ORDERED: IOPAMIDOL-370 125ML BTL INJ ONE ×2 (08:51→12:19)
[2018-09-27] MEDS ORDERED: VERAPAMIL 2.5 MG/ML 2 ML AMP ONE (11:21)
[2018-09-27] MEDS ORDERED: LIDOCAINE 1% INJ 10MG/ML (20 ML MDV) ONE (11:21)
[2018-09-27] MEDS ORDERED: MIDAZOLAM 2 MG/2 ML VIAL IVP ONE (11:56)
[2018-09-27] MEDS ORDERED: BIVALIRUDIN 250 MG in SODIUM CHLORIDE 0.9% 35 ML IV ONE (11:59)
[2018-09-27] MEDS ORDERED: BIVALIRUDIN BOLUS 250 MG/50 ML IV ONE (11:59)
[2018-09-27] MEDS ORDERED: VERAPAMIL SYRINGE (5 MG/10 ML) INTRAARTER ONE (12:00)
[2018-09-27] MEDS ORDERED: PRASUGREL 10 MG TAB ONE (12:01)
[2018-09-27] MEDS ORDERED: PRASUGREL 10 MG TAB PO ONE (12:03)
[2018-09-27] MEDS ORDERED: NITROGLYCERIN 1000MCG/10ML SYRINGE INTRACORON ONE (12:15)
[2018-09-27] MEDS ORDERED: NITROGLYCERIN SL TABS 0.4 MG TAB SUBLINGUAL PRN ×2 (12:48→12:49)
[2018-09-27] MEDS ORDERED: ATROPINE SULFATE 0.1 MG/ML 10ML SYRINGE IV PRN (12:49)
[2018-09-27] MEDS ORDERED: ZOLPIDEM 5 MG TAB PO PRN (12:49)
[2018-09-27] MEDS ORDERED: RX INFO: IV CONTRAST WAS GIVEN 1 EACH MISC MISCELLANE PRN (12:49)
[2018-09-27] MEDS ORDERED: MAG HYDROX/AL HYDROX/SIMETH 30 ML CUP PO PRN (12:49)
[2018-09-27] MEDS ORDERED: SODIUM CHLORIDE 0.9% 1,000 ML IV SCH (13:00)
[2018-09-27 14:08] VITALS: BMI 21.8
--- NOTE | 2018-09-27 14:14 | CC ---
CARDIAC CATHETERIZATION REPORT DATE OF SERVICE: 09/27/2018 PERFORMING PHYSICIAN: Feng Quigley MD, Decontaminator. PROCEDURE PERFORMED: 1. Selective right and left coronary angiogram. 2. Left heart catheterization. INDICATION: This is a pleasant 57-year-old gentleman with coronary artery disease and prior coronary artery stenting of the diagonal branch of the LAD as well as hypertension and dyslipidemia who was diagnosed recently with cardiomyopathy. He was seen by Dr. Mcdonough in the office and he was scheduled to undergo a heart catheterization to rule out any severe underlying coronary artery disease or progression in the severity of the coronary artery disease, behind his cardiomyopathy. The procedure was initially attempted from right and left groin approach and that was unsuccessful because of severe peripheral arterial disease and Dr. Mcdonough requested me to do the procedure from the right arm approach. COMPLICATION: None. LEVEL OF SEDATION: Moderate with sedation length of 18 minutes. PROCEDURE DESCRIPTION: After obtaining an informed consent, the patient was brought to the cardiac animal laboratory technician. The right radial artery was cannulated using micropuncture technique, the micropuncture wire passed easily, then I placed a 6-Dominican sheath 11 cm in the right radial artery. Subsequently, I gave the patient 2 mg of verapamil IA and 10,000 units of heparin IV. After that, I did perform selective right and left coronary angiogram using JR4 and JL3.5 catheters. Left heart catheterization was performed using 6-Dominican pigtail catheter. The procedure was completed without any complication. SELECTIVE CORONARY ANGIOGRAM: 1. The right coronary artery is a large caliber vessel and it is a dominant vessel and it is chronically occluded in the proximal portion. 2. The left main is a large caliber vessel with mild disease only. It bifurcates into the circumflex and left anterior descending artery. 3. The left circumflex is a large caliber vessel and it is a nondominant vessel. The proximal circumflex is tortuous with intermediate disease only. The mid circumflex appeared to be normal and the circumflex distally appeared to be normal as well. 4. The LAD, the proximal LAD has eccentric lesion seems to be in the range of 60%. The mid LAD has a long tubular lesion up to about 70%-80%. That lesion extends between the second and third diagonal of the LAD. The second diagonal of the LAD has a severe lesion in the proximal portion reaching its ostium, appeared to be in the range of 80%. The first diagonal branch is stented and the stent is occluded. The LAD distally appeared to be angiographically normal. HEMODYNAMICS: The left ventricular end-diastolic pressure was 6 mmHg without significant gradient across the aortic valve. CONCLUSION: 1. Chronic total occlusion of the right coronary artery which fills by collaterals from the left coronary artery system. 2. Mild disease involving the left main coronary artery which is a short left main. 3. Intermediate disease involving the proximal left circumflex coronary artery. 4. Intermediate disease involving the proximal LAD. Severe disease involving the mid LAD and severe disease involving the second diagonal branch of the LAD as well. 5. Successful stenting of the mid LAD using 3.25 x 28 mm Xience drug-eluting stent with good angiographic results and reduction of stenosis from 70% to 0% and without any complication. POSTPROCEDURE MANAGEMENT: 1. Dual anti-platelet therapy. 2. Risk factor modifications. 3. The patient needs to follow up with Dr. Mcdonough as an outpatient. MMODL / IJN: [id number] /
--- NOTE | 2018-09-27 15:14 | PTCA ---
PERCUTANEOUSTRANS CORORONARY ANGIOGRAPHY DATE OF SERVICE: 09/27/2018 PERFORMING PHYSICIAN: Feng Quigley MD, Health Safety Engineer. PROCEDURE PERFORMED: Successful stenting of the mid LAD using 3.25 x 28 mm Xience drug-eluting stent with good angiographic results and without any complication. INDICATION: This is a pleasant 67-year-old gentleman who sees Dr. Mcdonough in the office as an outpatient who was diagnosed recently with cardiomyopathy. He is also known to have coronary artery disease and prior stenting of the first diagonal branch of the LAD. He underwent heart catheterization earlier today and that showed severe disease involving the mid LAD. He was brought today to undergo an intervention of the LAD. APPROACH: Right radial artery. COMPLICATION: None. LEVEL OF SEDATION: Moderate with sedation length of 25 minutes. Anticoagulation was initiated using Angiomax. After that, I did engage the left main using JL3.5 guide. A whisper wire was used to wire the LAD. After that, I did balloon angioplasty of the mid LAD using 3.0 x 15 mm balloon, subsequently I deployed 3.25 x 28 mm Xience drug-eluting stent where the stent was positioned under fluoroscopy guidance and deployed under 14 atmospheres for 20 seconds. The following angiogram showed good angiographic results with reduction of stenosis from 70%-80% to 0%. The procedure was completed without any complication. POSTPROCEDURE MANAGEMENT: 1. Dual anti-platelet therapy. 2. Risk factor modifications. 3. Follow up with the patient. MMODL / IJN: [id number] /
[2018-09-27] MEDS: IPRATROPIUM 0.5 MG/2.5 ML NEBU INHALATION SCH ×2 (16:03→19:34)
[2018-09-27] MEDS ORDERED: NICOTINE 7MG/24HR PATCH TRANSDERM SCH (21:00)
[2018-09-27] MEDS: METOPROLOL TARTRATE 25 MG TAB PO SCH (22:09)
[2018-09-28 06:55] LABS: Basophils % (A) 0 %; Eosinophils # (A) 0.1 k/uL (0-0.7); Eosinophils % (A) 1 %; HGB 15.6 gm/dL (13.0-17.5); Lymphocytes % (A) 22 %; MCH 31.6 pg (25.0-35.0); MCHC 33.2 g/dL (31.0-37.0); MCV 95.4 fL (80.0-100.0); Mean Platelet Volume 6.8; Monocytes # (A) 0.8 k/uL (0-1.0); Monocytes % (A) 9 %; Neutrophils # (A) 5.8 k/uL (1.3-7.7); Neutrophils % (A) 65 %; Platelet Count 126 k/uL (150-450); RBC 4.93 m/uL (4.30-5.90); RDW 12.8 % (11.5-15.5); WBC 8.8 k/uL (3.8-10.6)
[2018-09-28 07:05] LABS: Anion Gap 7 mmol/L; Blood Urea Nitrogen 15 mg/dL (9-20); Calcium 9.2 mg/dL (8.4-10.2); Carbon Dioxide 26 mmol/L (22-30); Chloride 107 mmol/L (98-107); Glucose 92 mg/dL (74-99); Potassium 4.9 mmol/L (3.5-5.1); Sodium 140 mmol/L (137-145)
[2018-09-28] MEDS: IPRATROPIUM 0.5 MG/2.5 ML NEBU INHALATION SCH (07:54)
[2018-09-28] MEDS: METOPROLOL TARTRATE 25 MG TAB PO SCH (08:44)
[2018-09-28 08:50] VITALS: BP 153/74; PULSE 61; RESP 18; TEMP 97.6
[2018-09-28] MEDS ORDERED: ATORVASTATIN 80 MG TAB PO SCH (09:00)
[2018-09-28] MEDS ORDERED: ASPIRIN 81 MG PO SCH (09:00)
[2018-09-28] MEDS ORDERED: LISINOPRIL 5 MG TAB PO SCH (09:00)
[2018-09-28] MEDS ORDERED: SPIRONOLACTONE 25 MG TAB PO SCH (09:00)
[2018-09-28] MEDS ORDERED: FUROSEMIDE 20 MG TAB PO SCH (09:00)
[2018-09-28] MEDS ORDERED: PRASUGREL 10 MG TAB PO SCH (12:00)
--- NOTE | 2018-10-04 09:51 | DS ---
DISCHARGE SUMMARY DATE OF ADMISSION: 09/27/2018 DATE OF DISCHARGE: 09/28/2018 FINAL DIAGNOSIS: Cardiomyopathy. PROCEDURES PERFORMED: 1. Left heart catheterization. 2. Angioplasty with drug-eluting stent placement of LAD. HOSPITAL COURSE: This is a 57-year-old gentleman with known CAD status post prior angioplasty of diagonal branch who presented to us with new onset cardiomyopathy and congestive heart failure. He was advised to undergo cardiac catheterization to evaluate for coronary artery disease prior to AICD. The patient understood risks, benefits and alternatives. Initially, we attempted because of extensive peripheral vascular disease we could not. The patient went on to have radial cath that revealed chronically occluded right coronary artery with 70% stenosis involving the LAD. The patient underwent angioplasty of the same. Condition at the time of discharge, patient is chest pain free. Hemodynamically stable. Vital signs stable. Chest exam reveals good air entry bilaterally. Heart exam revealed first and second heart sounds, no gallop. Extremities did not reveal any edema. Peripheral pulses are palpable. Femoral site appears good. Medications are as charted. Patient will be discharged home on Plavix or Effient depending upon his insurance coverage. EKG: Post angioplasty EKG is free of ischemic changes. FOLLOWUP: Patient will be followed up in my office in a week's time. MMODL / IJN: [id number] /
== END 2018-09-28 10:45 | disposition home or self-care (01) ==
LOC: CATHCVL 06:17 → 3SCARD 12:23 → CATHCVL 09-28 10:45
PROVIDERS: ATTEND Internal Medicine Cardiovascular Disease
DX: I25.10 Atherosclerotic heart disease of native coronary artery without angina pectoris (principal); I25.82 Chronic total occlusion of coronary artery; R94.31 Abnormal electrocardiogram [ECG] [EKG]; I25.5 Ischemic cardiomyopathy; I11.0 Hypertensive heart disease with heart failure; I50.9 Heart failure, unspecified; E78.2 Mixed hyperlipidemia; F17.200 Nicotine dependence, unspecified, uncomplicated; Z95.5 Presence of coronary angioplasty implant and graft; Z79.82 Long term (current) use of aspirin; Z79.899 Other long term (current) drug therapy; Z82.49 Family history of ischemic heart disease and other diseases of the circulatory system
CPT/HCPCS: 94640 ×3; 93458; 80048; 85025; C9600; C1769 ×3; C1887; C1725; C1894 ×2; C1874; J2250; J2001; J3010; J1644; J0583; Q9967

== ENCOUNTER 2018-10-03 09:54 | Inpatient (IN) | payer OTHER ==
[2018-10-03] MEDS ORDERED: SODIUM CHLORIDE 0.9% 1,000 ML IV ONE (11:05)
[2018-10-03] MEDS ORDERED: ASPIRIN 81 MG ONE (11:20)
[2018-10-03] MEDS ORDERED: ALPRAZolam 0.25 MG TAB PO PRN (11:43)
[2018-10-03] MEDS ORDERED: ASPIRIN 325 MG TAB PO STA (11:43)
[2018-10-03] MEDS ORDERED: SODIUM CHLORIDE 0.9% 1,000 ML in EMPTY BAG 1 BAG IV ONE (11:43)
[2018-10-03] MEDS ORDERED: ALPRAZolam 0.5 MG TAB PO PRN (11:43)
[2018-10-03] MEDS ORDERED: NITROGLYCERIN SL TABS 0.4 MG TAB SUBLINGUAL PRN ×3 (11:43→13:24)
[2018-10-03] MEDS ORDERED: ATORVASTATIN 80 MG TAB PO STA (11:43)
[2018-10-03] MEDS ORDERED: HEPARIN SODIUM 1,000 UN/ML (10ML VL) ONE (12:26)
[2018-10-03] MEDS ORDERED: LIDOCAINE 1% INJ 10MG/ML (20 ML MDV) ONE (12:26)
[2018-10-03] MEDS ORDERED: VERAPAMIL 2.5 MG/ML 2 ML AMP ONE (12:26)
[2018-10-03] MEDS ORDERED: MIDAZOLAM 2 MG/2 ML VIAL IV ONE (12:45)
[2018-10-03] MEDS ORDERED: LIDOCAINE 1% INJ 10MG/ML (20 ML MDV) SQ ONE (12:46)
[2018-10-03] MEDS: VERAPAMIL SYRINGE (5 MG/10 ML) INTRAARTER ONE ×2 (12:47→13:19)
[2018-10-03] MEDS: NITROGLYCERIN 1000MCG/10ML SYRINGE INTRACORON ONE ×3 (12:54→13:16)
[2018-10-03] MEDS ORDERED: BIVALIRUDIN BOLUS 250 MG/50 ML IV ONE (13:05)
[2018-10-03] MEDS ORDERED: BIVALIRUDIN 250 MG in SODIUM CHLORIDE 0.9% 39 ML IV ONE (13:06)
[2018-10-03] MEDS ORDERED: MIDAZOLAM 2 MG/2 ML VIAL IVP ONE (13:09)
[2018-10-03] MEDS ORDERED: ZOLPIDEM 5 MG TAB PO PRN (13:24)
[2018-10-03] MEDS ORDERED: RX INFO: IV CONTRAST WAS GIVEN 1 EACH MISC MISCELLANE PRN (13:24)
[2018-10-03] MEDS ORDERED: MAG HYDROX/AL HYDROX/SIMETH 30 ML CUP PO PRN (13:24)
[2018-10-03] MEDS ORDERED: ATROPINE SULFATE 0.1 MG/ML 10ML SYRINGE IV PRN (13:24)
[2018-10-03] MEDS ORDERED: SODIUM CHLORIDE 0.9% 1,000 ML IV SCH (13:30)
--- NOTE | 2018-10-03 14:45 | CC ---
CARDIAC CATHETERIZATION REPORT DATE OF SERVICE: 10/03/2018 PERFORMING PHYSICIAN: Feng Quigley MD, Press Puller. PROCEDURE PERFORMED: 1. Selective left coronary angiogram. 2. Successful stenting of the mid LAD using 2.75 x 12 mm Xience drug-eluting stent with good angiographic results. INDICATION: This is a pleasant 57-year-old gentleman who sees Dr. Mcdonough in the office as an outpatient who underwent recently stenting of the mid LAD, presented to [facility] complaining of chest discomfort and ruled in for acute non ST elevation myocardial infarction. He was brought today to undergo a heart catheterization. APPROACH: Right radial artery. COMPLICATION: None. LEVEL OF SEDATION: Moderate with sedation length of 35 minutes. PROCEDURE DESCRIPTION: After obtaining an informed consent, the patient was brought to cardiac greenhouse laborer. The right radial artery was cannulated using micropuncture technique, then I placed a 6- [place] sheath in the right radial artery. After that, I gave the patient 2 mg of verapamil IA and anticoagulation was initiated using heparin. I did selective left coronary angiogram using JL3.5 diagnostic catheter. I did not do a selective right coronary angiogram because of its known chronic total occlusion of the right coronary artery. After that, I decided to intervene on the right coronary artery. Please see a separate paragraph for that. SELECTIVE CORONARY ANGIOGRAM: The left main is a large caliber vessel with mild disease only. It bifurcates into the circumflex and left anterior descending artery. The left circumflex is a large caliber vessel and it is a nondominant vessel. The proximal left circumflex is tortuous with intermediate disease only. The mid left circumflex appeared to be normal and the left circumflex distally appeared to be normal. The left circumflex in the proximal portion gives rise into a large OM branch which is stented with occluded stent. The LAD. The proximal LAD has eccentric lesion appeared to be in the range of 60%. The mid LAD, the stented and the stent is normal. There is what it seems to be distal edge dissection of the stent. The LAD distally appeared to be angiographically normal. ECA of the LAD. Coagulation was initiated using Angiomax. Subsequently, I did engage the left main using JL3.5 guide. A whisper wire was used to wire the LAD. After that, I did direct stenting of the lesion using 2.75 x 12 mm Xience drug-eluting stent where the stent was positioned under fluoroscopy guidance and deployed under fluoroscopy guidance as well. The following angiogram showed good angiographic results without any complication. The procedure was completed without any complication. CONCLUSION: 1. Distal edge dissection involving the mid LAD stent. 2. Successful stenting of the mid LAD using 2.75 x 12 mm Xience drug-eluting stent with good angiographic results. POSTPROCEDURE MANAGEMENT: 1. Dual anti-platelet therapy. 2. Risk factors modifications. 3. Follow up with the patient. MMODL / IJN: [id number] /
[2018-10-03] MEDS: IPRATROPIUM 0.5 MG/2.5 ML NEBU INHALATION SCH ×2 (16:35→19:57)
[2018-10-03] MEDS: METOPROLOL TARTRATE 25 MG TAB PO SCH (21:53)
[2018-10-03] MEDS: NICOTINE 7MG/24HR PATCH TRANSDERM SCH (22:40)
[2018-10-04] MEDS: IPRATROPIUM 0.5 MG/2.5 ML NEBU INHALATION SCH ×4 (08:37→19:18)
[2018-10-04] MEDS: LISINOPRIL 5 MG TAB PO SCH (09:05)
[2018-10-04] MEDS: SPIRONOLACTONE 25 MG TAB PO SCH (09:05)
[2018-10-04] MEDS: FUROSEMIDE 20 MG TAB PO SCH (09:05)
[2018-10-04] MEDS: CLOPIDOGREL 75 MG TAB PO SCH (09:05)
[2018-10-04] MEDS: ASPIRIN 81 MG PO SCH (09:05)
[2018-10-04] MEDS: METOPROLOL TARTRATE 25 MG TAB PO SCH ×2 (09:12→20:03)
[2018-10-04 14:04] VITALS: BMI 22.1
--- NOTE | 2018-10-04 14:12 | P.HPIM ---
History of Present Illness Terrell Shipley a 57 y.o.malewith a known history of hypertension, coronary artery disease and history of stent placement last by Dr. Mcdonough initially presented to [facility] with complaints of chest pain started One-day duration. Patient felt like the same chest pain to the back. Initial troponin level is 0.06 and repeat came back 2.698 and 2.086. Patient was started on heparin drip overnight. Currently patient denied any complaints of chest pain. Cardiology was consulted for further evaluation and they recommended to transfer the patient to [facility] for reevaluation of this stent by cardiac catheter and possible intervention Review of Systems CONSTITUTIONAL: No fever, no malaise, no fatigue. HEENT: No recent visual problems or hearing problems. Denied any sore throat. CARDIOVASCULAR: No orthopnea, PND, no palpitations, no syncope. PULMONARY: No shortness of breath, no cough, no hemoptysis. GASTROINTESTINAL: No diarrhea, no nausea, no vomiting, no abdominal pain. Normoactive bowel sounds. NEUROLOGICAL: No headaches, no weakness, no numbness. HEMATOLOGICAL: Denies any bleeding or petechiae. GENITOURINARY: Denies any burning micturition, frequency, or urgency. MUSCULOSKELETAL/RHEUMATOLOGICAL: Denies any joint pain, swelling, or any muscle pain. ENDOCRINE: Denies any polyuria or polydipsia. Past Medical History Past Medical History: Hyperlipidemia, Hypertension, Myocardial Infarction ([place]) Additional Past Medical History / Comment(s): recent dizziness, "rapid heart rate", Last Myocardial Infarction Date:: 1988 History of Any Multi-Drug Resistant Organisms: None Reported Past Surgical History: Heart Catheterization With Stent Additional Past Surgical History / Comment(s): one cardiac stent 09/27. STENT X1 10/03/2017 Past Anesthesia/Blood Transfusion Reactions: No Reported Reaction Date of Last Stent Placement:: 10/03/2018 Past Psychological History: No Psychological Hx Reported Smoking Status: Former smoker Past Alcohol Use History: None Reported Additional Past Alcohol Use History / Comment(s): last smoked 08/29/18. started smoking age 15, was< 1 PPD Past Drug Use History: None Reported - Past Family History Mother Family Medical History: Cancer Sister(s) Family Medical History: Cancer Medications and Allergies Home Medications Medication Instructions Recorded Confirmed Type Nitroglycerin Sl Tabs [Nitrostat] 0.4 mg SUBLINGUAL Q5M PRN 08/29/18 10/03/18 History Aspirin 81 mg PO DAILY #1 chewable 08/31/18 10/03/18 Rx Furosemide [Lasix] 20 mg PO DAILY #30 tab 08/31/18 10/03/18 Rx Lisinopril [Zestril] 5 mg PO DAILY #30 tab 08/31/18 10/03/18 Rx Metoprolol Tartrate [Lopressor] 25 mg PO BID #60 tab 08/31/18 10/03/18 Rx Nicotine 7Mg/24Hr Patch [Habitrol] 1 patch TRANSDERM DAILY@2100 #30 08/31/1811/20 Rx patch Spironolactone [Aldactone] 12.5 mg PO DAILY #30 tab 08/31/18 10/03/18 Rx Albuterol Inhaler [Ventolin Hfa 1 - 2 puff INHALATION RT-Q6H PRN 09/18/18 History Inhaler] Clopidogrel [Plavix] 75 mg PO DAILY 10/03/18 10/03/18 History Ipratropium [place] [Atrovent Hfa] 2 puff INHALATION RT-QID 10/03/18 10/03/18 History Allergies Allergy/AdvReac Type Severity Reaction Status Date / Time No Known Allergies Allergy Verified 10/03/18 17:14 Physical Exam Vitals: Vital Signs Temp Pulse Pulse Pulse Resp BP BP 10/04/18 13:18 46 L 10/04/18 13:08 46 L 10/04/18 11:40 97.4 F L 44 L 18 157/70 10/04/18 08:48 55 L 10/04/18 08:37 54 L 10/04/18 08:00 97.3 F L 48 L 18 141/73 10/04/18 04:00 97.1 F L 51 L 18 152/73 10/04/18 00:00 97.8 F 52 L 18 130/73 10/03/18 20:00 98.0 F 52 L 18 132/57 10/03/18 18:08 97.5 F L 54 L 18 154/75 10/03/18 17:54 52 L 18 10/03/18 16:03 47 L 16 147/74 10/03/18 15:25 61 16 156/79 10/03/18 14:50 56 L 16 145/73 10/03/18 14:09 55 L 16 132/67 Pulse Ox 10/04/18 13:18 10/04/18 13:08 10/04/18 11:40 100 10/04/18 08:48 10/04/18 08:37 99 10/04/18 08:00 100 10/04/18 04:00 99 10/04/18 00:00 98 10/03/18 20:00 98 10/03/18 18:08 99 10/03/18 17:54 10/03/18 16:03 100 10/03/18 15:25 10/03/18 14:50 98 10/03/18 14:09 99 Intake and Output 10/03/18 10/04/18 10/04/18 22:59 06:59 14:59 Intake Total 800 480 Output Total 300 Balance 500 480 Intake: Intake, IV Titration 200 Amount Sodium Chloride 0.9% 1, 200 000 ml @ 100 mls/hr IV . Q10H [facility] Rx#:[id number] Oral 600 480 Output: Urine 300 Other: Voiding Method Toilet Toilet # Voids 1 2 Weight 72.2 kg 72.2 kg GENERAL: The patient is alert and oriented x3, not in any acute distress. Well developed, well nourished. HEENT: Pupils are round and equally reacting to light. EOMI. No scleral icterus. No conjunctival pallor. Normocephalic, atraumatic. No pharyngeal erythema. No thyromegaly. CARDIOVASCULAR: S1 and S2 present. No murmurs, rubs, or gallops. PULMONARY: Chest is clear to auscultation, no wheezing or crackles. ABDOMEN: Soft, nontender, nondistended, normoactive bowel sounds. No palpable organomegaly. MUSCULOSKELETAL: No joint swelling or deformity. EXTREMITIES: No cyanosis, clubbing, or pedal edema. NEUROLOGICAL: Gross neurological examination did not reveal any focal deficits. SKIN: No rashes. Results CBC & Chem 7: 10/04/18 05:41 Thrombosis Risk Factor Assmnt - Choose All That Apply Any of the Below Risk Factors Present?: Yes Each Factor Represents 1 point: Age 41-60 years Other Risk Factors: No Other congenital or acquired thrombophilia - If yes, enter type in comment: No Thrombosis Risk Factor Assessment Total Risk Factor Score: 1 Thrombosis Risk Factor Assessment Level: Low Risk Assessment and Plan Assessment: Acute non-ST elevated CO with elevated troponin level Recent cardiac catheter patient stent placement Coronary disease with history of stent placement about a week ago Hypertension History of smoking quit 3 weeks ago Mild thrombocytopenia DVT prophylaxis. Patient is already on heparin drip Plan: This is a pleasant 57 years old male, presents with elevated troponins suspicious for acute coronary syndrome. Patient underwent underwent cardiac cath. He started the procedure well. Cardiology team following the pt. Labs and medication were reviewed.. Continue same treatment. Continue with symptomatic treatment. Resume home medication. Monitor lytes and vitals. DVT and GI prophylaxis. Further recommendations of the clinical course of the patient DVT prophylaxis: Subcutaneous heparin GI Prophylaxis: Pepcid Prognosis is guarded
--- NOTE | 2018-10-04 15:25 | P.PN ---
Subjective Progress Note Date: 10/04/18 This is a pleasant 57-year-old male patient with known history of hypertension, hyperlipidemia, family history of premature coronary artery disease, nicotine dependence, who was recently in the hospital and underwent a stent to the LAD. He presented on this occasion to [facility] with symptoms of chest discomfort and ruled in for non-Q-wave myocardial infarction. He was transferred here to [facility] where he underwent cardiac catheterization with successful stenting of the mid LAD. Patient was seen and examined this morning, feels well, denies any chest pain or difficulty in breathing. Blood pressure 114/60 with a heart rate in the 40s to 50s. Creatinine 0.8 today. Beta mau was held this morning because of bradycardia. Objective - Vital Signs Vital signs: Vital Signs Temp 97.4 F L 10/04/18 11:40 Pulse 46 L 10/04/18 13:18 Resp 18 10/04/18 11:40 BP 157/70 10/04/18 11:40 Pulse Ox 100 10/04/18 11:40 Intake & Output 10/03/18 10/04/18 10/04/18 18:59 06:59 18:59 Intake Total 905 480 Output Total 1000 Balance -95 480 Weight 73 kg 72.2 kg 72.2 kg Intake: IV 105 Sodium Chloride 0.9% 1, 0 000 ml @ 100 mls/hr IV . Q10H MORGAN Rx#:[id number] Intake, IV Titration 200 Amount Sodium Chloride 0.9% 1, 200 000 ml @ 100 mls/hr IV . Q10H MORGAN Rx#:[id number] Oral 600 480 Output: Urine 1000 Other: Voiding Method Toilet Toilet # Voids 1 2 - Exam PHYSICAL EXAMINATION: GENERAL: 57-year-old gentleman in no acute distress at the time HEENT: Head is atraumatic, normocephalic. Pupils equal, round. Sclera anicteric. Conjunctiva are clear. Mucous membranes of the mouth are moist. Neck is supple. There is no elevated jugular venous pressure. No carotid bruit is heard. HEART EXAMINATION: Heart S1, S2 normal. No murmur or gallop heard. CHEST EXAMINATION: Lungs are clear to auscultation and precussion. No chest wall tenderness is noted on palpation or with deep breathing. ABDOMEN: Soft, nontender. Bowel sounds are heard. No organomegaly noted. EXTREMITIES: 2+ peripheral pulses with no evidence of peripheral edema and no calf tenderness noted. Right radial artery conduit clean and dry, good distal pulse. Patient does have an area of ecchymosis at the right brachial area noted. NEUROLOGIC patient is awake, alert and oriented ?-3. . - Labs CBC & Chem 7: 10/04/18 05:41 Assessment and Plan Plan: Assessment and plan #1 non-ST elevation NE status post angioplasty and stenting of the LAD #2 recent LAD stenting #3 hypertension #4 hyperlipidemia #5 nicotine dependence Plan We will continue the patient on his current medications. Continue to observe for 24 hours and plan for possible discharge home in the morning if stable. DNP note has been reviewed, I agree with a documented findings and plan of care. Patient was seen and examined.
[2018-10-04] MEDS: FAMOTIDINE 20 MG/2 ML VIAL IV SCH (20:03)
[2018-10-04] MEDS: HEPARIN SODIUM,PORCINE 5,000 UNIT/ML 1 ML VIAL SQ SCH (20:06)
[2018-10-04] MEDS: NICOTINE 7MG/24HR PATCH TRANSDERM SCH (20:40)
[2018-10-05] MEDS: IPRATROPIUM 0.5 MG/2.5 ML NEBU INHALATION SCH ×2 (07:07→10:51)
[2018-10-05] MEDS: FAMOTIDINE 20 MG/2 ML VIAL IV SCH (08:29)
[2018-10-05] MEDS: LISINOPRIL 5 MG TAB PO SCH (08:29)
[2018-10-05] MEDS: CLOPIDOGREL 75 MG TAB PO SCH (08:29)
[2018-10-05] MEDS: HEPARIN SODIUM,PORCINE 5,000 UNIT/ML 1 ML VIAL SQ SCH (08:29)
[2018-10-05] MEDS: FUROSEMIDE 20 MG TAB PO SCH (08:29)
[2018-10-05] MEDS: ASPIRIN 81 MG PO SCH (08:29)
[2018-10-05] MEDS: METOPROLOL TARTRATE 25 MG TAB PO SCH (08:29)
[2018-10-05] MEDS: SPIRONOLACTONE 25 MG TAB PO SCH (08:29)
[2018-10-05 09:48] VITALS: RESP 18; TEMP 97.4
[2018-10-05 11:20] VITALS: BP 114/66; PULSE 60
--- NOTE | 2018-10-05 12:04 | P.PN ---
Subjective Patient is doing well. No chest discomfort dizziness lightheadedness or palpitations. He recently underwent coronary stenting. Heart rate 60 beats a minute afebrile 97.4F Blood pressure 114/66. His mercury normal respirations Groins of healed well is no hematoma no swelling or pain Breath sounds are clear no rhonchi no crackles Heart sounds S1 and S2 normal no murmurs impression History of recent ID about 1-2 weeks back Coronary stenting on this admission Plan discharge home on dual antiplatelet therapy Start statins May go home from a cardiac standpoint and follow with Dr. Kingsley Objective - Vital Signs Vital signs: Vital Signs Temp 97.4 F L 10/05/18 11:19 Pulse 60 10/05/18 11:55 Resp 18 10/05/18 11:19 BP 114/66 10/05/18 11:19 Pulse Ox 99 10/05/18 11:19 Intake & Output 10/04/18 10/05/18 10/05/18 18:59 06:59 18:59 Intake Total 960 20 240 Balance 960 20 240 Weight 72.2 kg 70.5 kg Intake: IV 20 0.9 20 Oral 960 240 Other: Voiding Method Toilet # Voids 2 - Labs CBC & Chem 7: 10/04/18 05:41
[2018-10-05] MEDS ORDERED: ATORVASTATIN 40 MG TAB PO SCH (12:15)
--- NOTE | 2018-10-05 17:54 | P.DS ---
Providers Date of admission: 10/03/18 11:12 Attending physician: Bull Glover Consults: 10/03/18 11:44 Consult Physician Urgent Consulting Provider: Feng Quigley Consult Reason/Comments: cath pt from [facility] Do you want consulting provider notified?: Already Contacted Placement Type Exists?: Yes 10/03/18 13:24 Consult Physician Routine Consulting Provider: [facility] Consult Reason/Comments: Post Interventional patient Do you want consulting provider notified?: Already Contacted Primary care physician: Stated None Hospital Course: diagnoses: Acute non-ST elevated ME with elevated troponin level, status post stenting of LAD Recent cardiac catheter patient and stent placement Coronary disease with history of stent placement about a week ago Hypertension History of smoking quit 3 weeks ago Mild thrombocytopenia Terrell Shipley a 57 y.o.malewith a known history of hypertension, coronary artery disease and history of stent placement last by Dr. Mcdonough initially presented to [facility] with complaints of chest pain started One-day duration. Patient felt like the same chest pain to the back. Initial troponin level is 0.06 and repeat came back 2.698 and 2.086. Patient was started on heparin drip overnight. Currently patient denied any complaints of chest pain. Cardiology was consulted for further evaluation and they recommended to transfer the patient to [facility] for reevaluation of this stent by cardiac catheter and possible intervention. At the current hospital patient underwent successful stenting of the mid LAD with drug-eluting stent.after the procedure patient denies any chest pain or dyspnea. No dizziness or change in urine or bowel habits. No fever.patient has been evaluated by husker operator and cleared him for discharge. Patient problems and management plan were discussed with him and he verbalized understanding and acceptance. Patient states that he has aspirin and Plavix at home and he was taking them as instructed. Patient was found stable and can be discharged home however he needs follow-up as an outpatient.patient agrees with the appointments with his husker operator and a its timing physical exam Gen.: Patient alert awake and oriented X 3, NOT IN DISTRESS CVS: s1-s2, RRR, no murmur CHEST:bilateral CTA, no wheezing or crepitation Abdomen: Soft, no tenderness, no distention, positive bowel sounds Extremities: No leg edema or induration Time spent more than 35 minutes Plan - Discharge Summary Discharge Rx Participant: No New Discharge Prescriptions: New Atorvastatin [Lipitor] 40 mg PO HS #90 tablet Famotidine [Pepcid] 20 mg PO BID #14 tab Continue Nitroglycerin Sl Tabs [Nitrostat] 0.4 mg SUBLINGUAL Q5M PRN PRN Reason: CHEST PAIN Aspirin 81 mg PO DAILY #1 chewable Furosemide [Lasix] 20 mg PO DAILY #30 tab Lisinopril [Zestril] 5 mg PO DAILY #30 tab Metoprolol Tartrate [Lopressor] 25 mg PO BID #60 tab Nicotine 7Mg/24Hr Patch [Habitrol] 1 patch TRANSDERM DAILY@2100 #30 patch Spironolactone [Aldactone] 12.5 mg PO DAILY #30 tab Albuterol Inhaler [Ventolin Hfa Inhaler] 1 - 2 puff INHALATION RT-Q6H PRN PRN Reason: Wheezing Clopidogrel [Plavix] 75 mg PO DAILY Ipratropium [place] [Atrovent Hfa] 2 puff INHALATION RT-QID Discharge Medication List Nitroglycerin Sl Tabs [Nitrostat] 0.4 mg SUBLINGUAL Q5M PRN 08/29/18 [History] Aspirin 81 mg PO DAILY #1 chewable 08/31/18 [Rx] Furosemide [Lasix] 20 mg PO DAILY #30 tab 08/31/18 [Rx] Lisinopril [Zestril] 5 mg PO DAILY #30 tab 08/31/18 [Rx] Metoprolol Tartrate [Lopressor] 25 mg PO BID #60 tab 08/31/18 [Rx] Nicotine 7Mg/24Hr Patch [Habitrol] 1 patch TRANSDERM DAILY@2100 #30 patch [Rx] Spironolactone [Aldactone] 12.5 mg PO DAILY #30 tab 08/31/18 [Rx] Albuterol Inhaler [Ventolin Hfa Inhaler] 1 - 2 puff INHALATION RT-Q6H PRN [History] Clopidogrel [Plavix] 75 mg PO DAILY 10/03/18 [History] Ipratropium [place] [Atrovent Hfa] 2 puff INHALATION RT-QID 10/03/18 [History] Atorvastatin [Lipitor] 40 mg PO HS #90 tablet 10/05/18 [Rx] Famotidine [Pepcid] 20 mg PO BID #14 tab 10/05/18 [Rx] Follow up Appointment(s)/Referral(s): Cuco Mcdonough MD [STAFF PHYSICIAN] - 10/11/18 3:15 pm () Patient Instructions/Handouts: *Surgery [facility] - After Heart Catheterization - Air Gun Operator Instructions, Heart Attack (DC), Left Heart Catheterization (DC) Care Plan Goals (MU): cardiac diet activity is limited till you see your doctor Discharge Disposition: HOME SELF-CARE
[2018-10-05] MEDS ORDERED: FAMOTIDINE 20 MG TAB PO SCH (21:00)
== END 2018-10-05 15:23 | disposition home or self-care (01) | DRG 246 ==
LOC: 3SCARD 11:12
PROVIDERS: ADMIT Internal Medicine; ATTEND Internal Medicine
PROC: 027034Z Dilation of Coronary Artery, One Artery with Drug-eluting Intraluminal Device, Percutaneous Approach (ICD-10-PCS; principal; 2018-10-03 11:05)
PROC: B2111ZZ Fluoroscopy of Multiple Coronary Arteries using Low Osmolar Contrast (ICD-10-PCS; 2018-10-03 11:05)
DX: I21.4 Non-ST elevation (NSTEMI) myocardial infarction (principal); I25.42 Coronary artery dissection; D69.6 Thrombocytopenia, unspecified; I25.82 Chronic total occlusion of coronary artery; I25.10 Atherosclerotic heart disease of native coronary artery without angina pectoris; I10 Essential (primary) hypertension; E78.5 Hyperlipidemia, unspecified; I25.2 Old myocardial infarction; R00.1 Bradycardia, unspecified; T44.7X5A Adverse effect of beta-adrenoreceptor antagonists, initial encounter; F17.201 Nicotine dependence, unspecified, in remission; Z79.82 Long term (current) use of aspirin; Z79.02 Long term (current) use of antithrombotics/antiplatelets; Z79.899 Other long term (current) drug therapy; Z95.5 Presence of coronary angioplasty implant and graft; Z80.9 Family history of malignant neoplasm, unspecified; Z82.49 Family history of ischemic heart disease and other diseases of the circulatory system
CPT/HCPCS: 82565; 93454; 94640; 94760; C1874

== ENCOUNTER 2019-05-31 08:38 | Day surgery (SDC) | payer OTHER ==
[2019-05-28 16:04] VITALS: BMI 24.8
[~2019-05-31 08:38] MED LIST changes: -ALPRAZolam 0.25 MG TAB PO PRN; -ALPRAZolam 0.5 MG TAB PO PRN; -ASPIRIN 325 MG TAB PO ONE; -ASPIRIN 325 MG TAB PO STA; -ATORVASTATIN 80 MG TAB PO STA; +LACTATED RINGERS 1,000 ML IV SCH; +LIDOCAINE 1% 20 ML VIAL (10MG/ML) FOR IV START INTRADERMA PRN; -NITROGLYCERIN SL TABS 0.4 MG TAB SUBLINGUAL PRN; -SODIUM CHLORIDE 0.9% 1,000 ML in EMPTY BAG 1 BAG IV ONE
[2019-05-31 09:15] VITALS: TEMP 97.5
[2019-05-31] MEDS ORDERED: PROPOFOL 10 MG/ML 20 ML VIAL IV ONE (09:42)
--- NOTE | 2019-05-31 10:09 | P.PCN ---
Date of Procedure: 05/31/19 Procedure(s) Performed: BRIEF HISTORY: Patient is a 58-year-old pleasant male, scheduled for an elective colonoscopy as a part of evaluation of prior history of colon polyps. Last colonoscopy was 3 years ago. PROCEDURE PERFORMED: Colonoscopy with snare polypectomy. PREOPERATIVE DIAGNOSIS: History of colon polyps. IV sedation per Anesthesia. PROCEDURE: After informed consent was obtained, the patient, was brought into the endoscopy unit. IV sedation was administered by Anesthesia under continuous monitoring. Digital rectal examination was normal. Initially the Olympus CF-160 flexible video colonoscope was then inserted in the rectum, gradually advanced into the cecum without any difficulty. Careful examination was performed as the scope was gradually being withdrawn. Ileocecal valve and the appendiceal orifice were visualized and appeared normal. Prep was excellent. Mucosa of the cecum, ascending colon, appeared normal. In the transverse colon there was a 5 mL polyp that was removed by snare polypectomy. Rest of the transverse colon, descending colon, sigmoid colon, and rectum appeared normal. There were 2 small polyps in the sigmoid colon H measuring 3-4 mm in size removed by snare polypectomy. Retroflexion was performed in the rectum and no lesions were seen. The patient tolerated the procedure well. IMPRESSION: 5 mm transverse colon polyp status post polypectomy 3 mm 2 sigmoid colon polyps status post polypectomy RECOMMENDATIONS: Findings of this examination were discussed with the patient as well as a family.. He was advised to follow with the biopsy results. If the biopsy shows an adenoma he can have a repeat colonoscopy in 5 years.
[2019-05-31 10:55] VITALS: BP 122/76; PULSE 7; RESP 18
== END 2019-05-31 10:39 | disposition home or self-care (01) ==
LOC: ORWHC2ENDO 08:38
PROVIDERS: ATTEND Internal Medicine Gastroenterology
DX: Z12.11 Encounter for screening for malignant neoplasm of colon (principal); D12.3 Benign neoplasm of transverse colon; K63.5 Polyp of colon; I25.10 Atherosclerotic heart disease of native coronary artery without angina pectoris; I11.0 Hypertensive heart disease with heart failure; I50.9 Heart failure, unspecified; F17.200 Nicotine dependence, unspecified, uncomplicated; E78.5 Hyperlipidemia, unspecified; Z97.2 Presence of dental prosthetic device (complete) (partial); Z79.82 Long term (current) use of aspirin; Z79.899 Other long term (current) drug therapy
CPT/HCPCS: 88305; 45385; J2704

== ENCOUNTER 2019-07-08 06:00 | Day surgery (SDC) | payer OTHER ==
[~2019-07-08 06:00] MED LIST changes: -LACTATED RINGERS 1,000 ML IV SCH; +MIDAZOLAM 2 MG/2 ML VIAL IV PRN; +fentaNYL (PF) 50 MCG/ML 2 ML AMP IV PRN
[2019-07-08] MEDS: SODIUM CHLORIDE 0.9% 1,000 ML IV SCH (06:09)
[2019-07-08] MEDS ORDERED: DEXAMETHASONE SOD PHOSPHATE 10 MG/ML 1 ML VIAL IV ONE (06:30)
[2019-07-08] MEDS ORDERED: ceFAZolin 1,000 MG in SODIUM CHLORIDE 0.9% IRRIGATIO 250 ML IRRIGATION ONE (07:00)
[2019-07-08] MEDS ORDERED: ETOMIDATE 2 MG/ML 10 ML VIAL ONE (07:15)
[2019-07-08] MEDS ORDERED: fentaNYL (PF) 50 MCG/ML 2 ML AMP ONE (07:15)
[2019-07-08] MEDS ORDERED: diphenhydrAMINE 50 MG/ML 1 ML VIAL ONE (07:15)
[2019-07-08] MEDS ORDERED: DEXAMETHASONE SOD PHOS (MDV) 100 MG/10 ML VIAL ONE (07:15)
[2019-07-08] MEDS ORDERED: MIDAZOLAM 2 MG/2 ML VIAL ONE (07:15)
[2019-07-08] MEDS ORDERED: IOPAMIDOL-250 50ML BTL IV ONE (07:30)
[2019-07-08] MEDS ORDERED: LIDOCAINE 1% INJ 10MG/ML (20 ML MDV) ONE (07:40)
[2019-07-08] MEDS ORDERED: LIDOCAINE 1% INJ 10MG/ML (20 ML MDV) SQ ONE (08:06)
[2019-07-08] MEDS ORDERED: ACETAMINOPHEN TAB 325 MG TAB PO PRN (09:13)
[2019-07-08] MEDS ORDERED: HYDROcodone/APAP 5-325MG 1 EACH TAB PO PRN (09:13)
[2019-07-08] MEDS ORDERED: SODIUM CHLORIDE 0.9% 250 ML IV ONE (09:27)
--- NOTE | 2019-07-08 09:37 | P.PRLE ---
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 He has severe, chronic ischemic cardio myopathy/class II CHF despite revascularization and guideline directed medical treatment His medications remain unchanged and he will follow-up with you and Dr. Kingsley as before Thank you for entrusting me with the care of the patient Warm regards Sincerely Rich Ridre
[2019-07-08] MEDS ORDERED: ACETAMINOPHEN IV (For NPO) 1,000 MG in EMPTY BAG 1 BAG IVPB ONE (10:00)
[2019-07-08 10:03] VITALS: BMI 22.6
--- NOTE | 2019-07-08 11:22 | CE ---
CARDIAC ELECTROPHYSIOLOGY REPORT Mr. James is a 58-year-old male patient who has known ischemic cardiomyopathy, an old myocardial infarction, inferior wall, ejection fraction chronically reduced at 35%, most recent revascularization in October of 2018 on guideline-directed medical treatment with class 2 heart failure symptoms. His heart rates are in the normal range. He was brought in for single-chamber ICD implant for primary prevention of sudden cardiac . The patient is brought to the EP Lab in a fasting state. Written informed consent was obtained prior to the procedure. IV antibiotics were administered. The left pectoral area was prepped and draped as per protocol and 1% lidocaine was used for local anesthesia. A 4 cm incision was made parallel to the deltopectoral groove, about 1.5 cm medial to it. The incision was carried down to the level of the pectoralis muscle and a subfascial pocket was made. Hemostasis was assured. The left axillary vein was accessed at a single point under fluoroscopy and via an appropriately-sized introducer sheath, an ICD lead [employer] was placed in the right heart. This lead was positioned in the mid RV septum and screwed in. The final R-waves greater than 12 mV, pacing impedance 580 ohms, pacing threshold 0.5 V at 0.5 milliseconds. The lead was secured to the underlying pectoralis muscle. Hemostasis was assured. The lead was then connected to the generator and the lead and generator were then placed in subfascial pocket. The wound was closed in 3 layers and dressed per protocol. The single coil ICD lead was a [employer] model number 7122Q, 58 cm in length and serial number [id number]. The ICD generator was model number [employer] [id number], serial number #[id number]. The lead and generator were then placed in subfascial pocket. The wound was closed in 3 layers and dressed per protocol. ICD TESTING UNDER ANESTHESIA: A DC fib with shock was used to induce ventricular fibrillation. This was adequately and appropriately detected at least sensitivity and successfully internally defibrillated with a 10-joule shock. The charge time was 1.9 seconds. Shocking impedance 68 ohms. No post shock noise. The device was then programmed to the [employer] programming with appropriate antitachycardia pacing cardioversion and defibrillation. Left upper extremity venogram prior to starting the procedure: The venogram of the left upper extremity was performed, 15 mL of dye was used, injected in the left arm. The axillary, subclavian and innominate veins were found patent. RESULTS: Successful single-chamber ICD implantation for primary prevention of sudden cardiac in this gentleman with underlying ischemic cardiomyopathy and class 2 congestive heart failure. PLAN: Continue current medical treatment, IV antibiotics and discharged home tomorrow and follow up in ICD clinic in 5 days. MMODL / IJN: [id number] /
[2019-07-08] MEDS: LACTATED RINGERS 1,000 ML IV SCH (12:59)
[2019-07-08] MEDS: METOPROLOL TARTRATE 25 MG TAB PO SCH (21:04)
[2019-07-08 23:18] VITALS: RESP 18
[2019-07-09] MEDS: SODIUM CHLORIDE 0.9% 1,000 ML IV SCH (02:17)
[2019-07-09] MEDS: LACTATED RINGERS 1,000 ML IV SCH (06:22)
[2019-07-09 07:52] VITALS: BP 145/67; PULSE 47; TEMP 97.7
--- NOTE | 2019-07-09 08:17 | XR ---
EXAMINATION TYPE: XR chest 2V DATE OF EXAM: 07/09/2019 COMPARISON: 08/30/2018 HISTORY: 58-year-old male lead placement check TECHNIQUE: PA and lateral views FINDINGS: Left anterior chest wall ICD generator with right ventricular lead. Heart overall normal size. No pne umothorax. Pulmonary vasculature within normal limits. No consolidation or pleural effusion. IMPRESSION: Left-sided pacemaker generator with single right ventricular AICD lead. No pneumothorax.
[2019-07-09] MEDS: METOPROLOL TARTRATE 25 MG TAB PO SCH (08:46)
[2019-07-09] MEDS ORDERED: SPIRONOLACTONE 25 MG TAB PO SCH (09:00)
[2019-07-09] MEDS ORDERED: LISINOPRIL 5 MG TAB PO SCH (09:00)
[2019-07-09] MEDS ORDERED: ATORVASTATIN 80 MG TAB PO SCH (09:00)
[2019-07-09] MEDS ORDERED: FUROSEMIDE 20 MG TAB PO SCH (09:00)
[2019-07-09] MEDS ORDERED: ASPIRIN 81 MG PO SCH (09:00)
--- NOTE | 2019-07-09 09:31 | P.DS ---
Providers Attending physician: Rich Rider Primary care physician: Duane Young [facility] Course: Patient is a 58-year-old male with ischemic cardiomyopathy, most recent echo showing EF 35%, CAD status post stenting in October, CHF class II who presented for ICD placement for primary prevention of sudden cardiac . Yesterday he underwent a successful single-chamber ICD placement. Patient tolerated the procedure well and there were no acute events overnight. Patient seen and examined sitting up at the side of the bed. States he feels well. Pain is well controlled. Has been able to get up and walk around. Denies any dizziness, lightheadedness or syncope. Denies any shortness of breath or chest pain. He ate his breakfast this morning. Chest x-ray shows no pneumothorax Exam Temperature 97.7F, pulse 47, respirations 18, blood pressure 145/67, oxygen saturation 99% on room air Patient seen and examined sitting comfortably in bed, in no acute distress Lungs are clear to auscultation bilaterally Heart is regular, soft systolic murmur noted ICD dressing clean, dry and intact No elevated JVD No lower extremity edema Impression Ischemic cardiomyopathy status post single-chamber ICD placement for primary prevention CAD CHF class II Plan Clear to discharge after IV antibiotics completed continue current medication regimen Follow-up in the device clinic Plan - Discharge Summary Discharge Rx Participant: No New Discharge Prescriptions: No Action Nitroglycerin Sl Tabs [Nitrostat] 0.4 mg SUBLINGUAL Q5M PRN PRN Reason: CHEST PAIN Aspirin 81 mg PO DAILY #1 chewable Furosemide [Lasix] 20 mg PO DAILY #30 tab Lisinopril [Zestril] 5 mg PO DAILY #30 tab Metoprolol Tartrate [Lopressor] 25 mg PO BID #60 tab Albuterol Inhaler [Ventolin Hfa Inhaler] 1 - 2 puff INHALATION Q6HR PRN PRN Reason: Wheezing Atorvastatin Calcium [Lipitor] 80 mg PO DAILY Spironolactone [Aldactone] 0.5 tab PO DAILY Discharge Medication List Nitroglycerin Sl Tabs [Nitrostat] 0.4 mg SUBLINGUAL Q5M PRN 08/29/18 [History] Aspirin 81 mg PO DAILY #1 chewable 08/31/18 [Rx] Furosemide [Lasix] 20 mg PO DAILY #30 tab 08/31/18 [Rx] Lisinopril [Zestril] 5 mg PO DAILY #30 tab 08/31/18 [Rx] Metoprolol Tartrate [Lopressor] 25 mg PO BID #60 tab 08/31/18 [Rx] Albuterol Inhaler [Ventolin Hfa Inhaler] 1 - 2 puff INHALATION Q6HR PRN 09/18/18 [History] Atorvastatin Calcium [Lipitor] 80 mg PO DAILY 05/29/19 [History] Spironolactone [Aldactone] 0.5 tab PO DAILY 07/05/19 [History] Follow up Appointment(s)/Referral(s): Cuco Mcdonough MD [STAFF PHYSICIAN] - 1 Week (Follow-up in the device clinic within a week Follow up with Dr. Mcdonough in 3-4 months or as previously scheduled) Activity/Diet/Wound Care/Special Instructions: PATIENT EDUCATION MATERIAL Instructions following a heart rhythm device implant. 1. Keep dressing DRY for 5 DAYS. You may cover the area with Saran or Cling Wrap, prior to a shower. 2. The dressing will be removed in the Device Clinic at [facility]. Absorbable sutures were used to close the wound. 3. Avoid raising the left arm above the shoulder level. 4 week restriction 4. Avoid arm movements, like backscratching, rubbing the head, or pulling on a cord. 4 weeks restriction 5. Gentle range of motion movements of the shoulder, closest to the incision should be performed to avoid a frozen shoulder. (Pendulum exercises of the shoulder) 6. The opposite arm may be used freely. 7. Avoid driving for 7 days. 8. Avoid activities such as golfing, swimming, weed whacking, lifting more than 10 pounds weight, bowling, gymnastics and weight training/lifting. (6 weeks restriction) 9. Activities such as wood chopping with an axe, pull-ups in the gymnasium, power lifting, arc-welding, being close to home induction cooktops will always be a problem. 10. Arm sling is only a reminder not to raise the arm above the head. You do not need to keep the arm completely immobilized. Your free to move the arm and use it and for normal activities. In case of any problems, please call [facility] [place], @ [phone], Attention: Device Clinic Device clinic follow-up in 5 days Follow-up with primary food mixer repairer in 2-3 months Continue all cardiac medications, no medication changes
== END 2019-07-09 11:10 ==
LOC: CATHEP 06:00 → 1SOBS 09:07 → CATHEP 07-09 11:10
PROVIDERS: ATTEND Internal Medicine Clinical Cardiac Electrophysiology
DX: I25.5 Ischemic cardiomyopathy (principal); I11.0 Hypertensive heart disease with heart failure; I50.9 Heart failure, unspecified; E78.5 Hyperlipidemia, unspecified; F17.210 Nicotine dependence, cigarettes, uncomplicated; Z95.5 Presence of coronary angioplasty implant and graft; I25.2 Old myocardial infarction; Z82.49 Family history of ischemic heart disease and other diseases of the circulatory system; Z79.02 Long term (current) use of antithrombotics/antiplatelets; Z79.82 Long term (current) use of aspirin; Z79.899 Other long term (current) drug therapy
CPT/HCPCS: 93641; 33249; 71046; C1769 ×4; C1730; C1892; C1777; C1722; J2250; J1200; J0690 ×2; J2001; J3010; J1100; Q9966

== ENCOUNTER → 2021-04-29 | Outpatient (CLI) | payer OTHER ==
--- NOTE | 2021-04-29 16:29 | US ---
EXAMINATION TYPE: US chest DATE OF EXAM: 04/29/2021 COMPARISON: Radiograph same day CLINICAL HISTORY: 60-year-old male J90 left PLEURAL EFFUSION. TECHNIQUE: Targeted ultrasound of the posterior lower left hemithorax FINDINGS: EXAM MEASUREMENTS: Left Pleural Effusion pocket size: 11.6 cm Left skin surface to fluid distance: 2.1 cm Left side marked for possible thoracentesis outside the dept. Pulmonologists are able to review the images in the patient?s EMR. IMPRESSIONS: Moderate to large left pleural effusion with marking performed.
== END | disposition home or self-care (01) ==
LOC: RADUSWWP 14:38
PROVIDERS: ATTEND Internal Medicine
DX: J90 Pleural effusion, not elsewhere classified (principal)
CPT/HCPCS: 76604

== ENCOUNTER 2021-04-30 11:18 | Inpatient (IN) | payer OTHER ==
--- NOTE | 2021-04-30 13:01 | XR ---
EXAMINATION TYPE: XR chest 1V portable DATE OF EXAM: 04/30/2021 Comparison: 04/29/2021 Clinical History: 60-year-old male post left thoracentesis Findings: Left anterior chest wall AICD generator with right ventricular lead. Heart upper limits of normal in size. Residual small left pleural effusion. There is a moderate-sized pneumothorax estimated at 30%, greate st air collection at the base measuring 4.8 cm. Lateral component measures 1.2 cm. Apical component m easures 4 mm. There may be a small pleural catheter in place. Right lung and pleural space are clear. Impression: 1. Left-sided hydropneumothorax with a moderate pneumothorax component measuring 4.8 cm at the base. There seems to be a small pleural catheter present. 2. Residual small left effusion remains, markedly improved from prior.
--- NOTE | 2021-04-30 13:44 | P.CNPUL ---
History of Present Illness Consult date: 04/30/21 Reason for consult: pleural effusion, pneumothorax History of present illness: 58-year-old male patient with a large left-sided pleural effusion was undergoing a thoracentesis today with Dr. Navarrete. Total of 3.2 L of pleural fluid was aspirated from the left lung successfully. Immediately post thoracentesis, the chest x-ray showed a left-sided pneumothorax extending from the lung apex to the peripheries and to the lung bases. The pneumothorax estimated to be around 30% of the left hemithorax. Greatest air collection was in the lung base measuring 4.8 cm in size. There is a residual small left-sided pleural effusion still present. Hemodynamically stable. No complaints. The patient has an AICD in place. He has history of ischemic cardiomyopathy and is has a single chamber AICD. He is known to have CAD, he is known also to have systolic chronic heart failure with an ejection fraction of 20%. The terms of his CAD, he has had a previous coronary stent back in 2019. Postthoracentesis, likely improved in terms of his breathing as the patient was having orthopnea and significant amount of exertional dyspnea prior to him coming into the hospital. He was a few occasions in [facility] he was discharged home and he was told about the pleural effusion. No syncope. No angina. He is a bit lethargic. Pulse ox on room air is order of 94% and is resting comfortably in bed. On examination, breath sounds are diminished on the left compared to the right physical chronic smoker. Review of Systems Constitutional: Reports fatigue, Reports weakness Eyes: denies as per HPI, denies blurred vision, denies bulging eye, denies decreased vision, denies diplopia, denies discharge, denies dry eye, denies irritation, denies itching, denies pain, denies photophobia, denies loss of peripheral vision, denies loss of vision, denies tunnel vision/blind spots Ears: deny: decreased hearing, ear discharge, earache, tinnitus Ears, nose, mouth and throat: Denies headache, Denies sore throat Breasts: absent: as per HPI, gynecomastia Cardiovascular: Reports decreased exercise tolerance, Reports dyspnea on exertion, Reports leg edema, Reports orthopnea, Reports paroxysmal nocturnal dyspnea, Reports shortness of breath Respiratory: Reports as per HPI, Reports dyspnea Genitourinary: Reports as per HPI, Reports hematuria Musculoskeletal: absent: ankle pain, ankle stiffness, ankle swelling Integumentary: Reports as per HPI Neurological: Reports as per HPI Psychiatric: Reports as per HPI Endocrine: Reports as per HPI Hematologic/Lymphatic: Reports as per HPI Allergic/Immunologic: Reports as per HPI Past Medical History Past Medical History: Coronary Artery Disease (CAD), Hyperlipidemia, Hypertension, Myocardial Infarction (AR) Last Myocardial Infarction Date:: 1988 History of Any Multi-Drug Resistant Organisms: None Reported Past Surgical History: Heart Catheterization With Stent Additional Past Surgical History / Comment(s): one cardiac stent 09/27/2018. STENT X1 10/03/2018 Past Anesthesia/Blood Transfusion Reactions: Family History of Problems w/ Anesthesia Additional Past Anesthesia/Blood Transfusion Reaction / Comment(s): sister has diff coming out Date of Last Stent Placement:: 10/03/2018 Smoking Status: Current every day smoker - Past Family History Mother Family Medical History: Cancer Sister(s) Family Medical History: Cancer Father Family Medical History: Cancer Medications and Allergies Home Medications Medication Instructions Recorded Confirmed Type Nitroglycerin Sl Tabs [Nitrostat] 0.4 mg SUBLINGUAL Q5M PRN 08/29/18 04/30/21 History Aspirin 81 mg PO DAILY #1 chewable 08/31/18 04/30/21 Rx Furosemide [Lasix] 20 mg PO DAILY #30 tab 08/31/18 04/30/21 Rx Metoprolol Tartrate [Lopressor] 25 mg PO BID #60 tab 08/31/18 04/30/21 Rx Albuterol Inhaler (Mhu) [Ventolin 1 - 2 puff INHALATION Q6HR PRN 09/18/18 04/30/21 History Hfa Inhaler (Mhu)] Spironolactone [Aldactone] 0.5 tab PO DAILY 07/05/19 04/30/21 History Atorvastatin [Lipitor] 80 mg PO DAILY 04/30/21 04/30/21 History Fluticasone Propionate [Flonase 1 spray INHALATION DIRECTED 04/30/21 04/30/21 History Allergy Relief] HYDROcodone/APAP 10-325MG [[place] 1 tab PO Q4-6H PRN 04/30/21 04/30/21 History 10-325] Levofloxacin [Levaquin] 500 mg PO DAILY 04/30/21 04/30/21 History Losartan [Cozaar] 25 mg PO DAILY 04/30/21 04/30/21 History Tiotropium 18 Mcg/Puff [Spiriva] 1 puff INHALATION DIRECTED 04/30/21 04/30/21 History traMADol HCL 50 mg PO DAILY 04/30/21 04/30/21 History Allergies Allergy/AdvReac Type Severity Reaction Status Date / Time No Known Allergies Allergy Verified 04/30/21 11:33 Physical Exam Vitals: Vital Signs Temp Pulse Resp BP Pulse Ox 04/30/21 13:00 93 20 150/88 98 04/30/21 12:50 80 20 126/75 98 04/30/21 12:39 90 20 107/72 98 04/30/21 11:45 94 18 151/92 97 04/30/21 11:43 97.7 F 94 18 151/92 97 Intake and Output 04/29/21 04/30/21 04/30/21 22:59 06:59 14:59 Other: Weight 67.585 kg Gen. appearance, comfortable not in acute respiratory distress. He is not using excessive muscle breathing. Head exam was generally normal. There was no scleral icterus or corneal arcus. Mucous membranes were moist. Neck was supple and with jugular venous distension, thyromegaly, or carotid bruits. Carotids were easily palpable bilaterally. There was no adenopathy. On examination of the lung sounds, the breath sounds are quite diminished on the left compared to the right specially the left lung base and the breath sounds are essentially asymmetric rated to underlying pneumothorax and some residual left-sided pleural effusion. No significant wheezes. Heart sounds are regular, there is accentuation of the second heart sound along with a gallop rhythm. No significant murmurs appreciated. Abdominal exam revealed normal bowel sounds. The abdomen was soft, non-tender, and without masses, organomegaly, or appreciable enlargement of the abdominal aorta. Examination of the extremities revealed easily palpable radial, femoral and pedal pulses. There was cyanosis and digital clubbing with trace edema in the lower extremities bilaterally.. Examination of the skin revealed no evidence of significant rashes, suspicious appearing nevi or other concerning lesions. Neurologically, the patient is awake and alert and the patient does not have any focal neurological deficit. Cranial nerves are essentially intact. Results - Diagnostic Findings Chest x-ray: image reviewed Assessment and Plan Plan: 1 iatrogenically pneumothorax, left-sided postthoracentesis, consider trapped lung as the patient may have had chronic left-sided pleural effusion with significant amount of atelectasis involving the left lung. Left lung is adequately expanded. There is a 30% pneumothorax postthoracentesis noted. No evidence of any tension pneumothorax. No significant hypoxemia. No signs of any respiratory distress. In fact clinically the patient is feeling less short of breath postthoracentesis 2 large left-sided pleural effusion, consider secondary to heart failure/cardiomyopathy. Fluid will be sent for analysis including chemistry and cytology 3 history of ischemic cardiomyopathy with ejection fraction of around 20% 4 history of left-sided AICD single chamber placement for his underlying ischemic cardiomyopathy 5 coronary artery disease with previous AR, previous coronary stenting back in 2018 and 2019, currently free of any angina 6 diabetes mellitus 7 COPD A smoker 9 hyperlipidemia Plan Discussed the case with Dr. Navarrete. I'm more inclined of putting a catheter will allow the left lung to fully expand. Thoravent will be difficult as the patient has a AICD over the left anterior chest area. Dr. Navarrete's opinion was to monitor the pneumothorax especially the patient was showing no signs of any tension pneumothorax and he was hemodynamically stable without any significant respiratory distress. He'll be admitted to the telemetry unit for further monitoring. Development of any symptoms or worsening of pneumothorax wasn't required a chest tube insertion whether dictated were regular chest tube. The family has been made aware. We'll resume home medication. We'll give him incentive spirometer. We'll continue to follow.
[2021-04-30] MEDS ORDERED: ALBUTEROL HFA INHALER INHALATION PRN (15:04)
[2021-04-30] MEDS ORDERED: NITROGLYCERIN SL TABS 0.4 MG TAB SUBLINGUAL PRN (15:04)
[2021-04-30] MEDS ORDERED: NALOXONE 0.4 MG/ML 1 ML VIAL IV PRN (15:06)
[2021-04-30] MEDS ORDERED: MELATONIN 3 MG TABLET PO PRN (15:06)
[2021-04-30] MEDS ORDERED: ONDANSETRON 4 MG/2 ML VIAL IVP PRN (15:06)
[2021-04-30] MEDS: LEVOFLOXACIN 500 MG TAB PO SCH (15:42)
[2021-04-30] MEDS: FLUTICASONE 50MCG/SPRAY NASAL 16GM NASAL SCH (15:42)
[2021-04-30] MEDS: LOSARTAN 25 MG TAB PO SCH (15:42)
[2021-04-30] MEDS: IPRATROPIUM 0.5 MG/2.5 ML NEBU INHALATION SCH ×2 (15:45→19:46)
[2021-04-30 16:12] LABS: Basophils % (A) 0 %; Eosinophils # (A) 0.1 k/uL (0-0.7); Eosinophils % (A) 1 %; HCT 46.5 % (39.0-53.0); HGB 14.6 gm/dL (13.0-17.5); Hypochromasia Slight; Lymphocytes # (A) 0.8 k/uL (1.0-4.8); Lymphocytes % (A) 7 %; MCH 32.6 pg (25.0-35.0); MCHC 31.4 g/dL (31.0-37.0); MCV 103.7 fL (80.0-100.0); Macrocytosis Moderate; Mean Platelet Volume 6.9; Monocytes # (A) 0.6 k/uL (0-1.0); Monocytes % (A) 4 %; Neutrophils # (A) 11.1 k/uL (1.3-7.7); Neutrophils % (A) 87 %; Platelet Count 179 k/uL (150-450); RBC 4.48 m/uL (4.30-5.90); RDW 15.4 % (11.5-15.5); WBC 12.7 k/uL (3.8-10.6)
[2021-04-30 16:22] LABS: Appearance,BF Clear; Color,BF Yellow; Nucleated Cells, Body Fluid 98 /uL; RBC, Body Fluid 174 /uL
[2021-04-30 16:28] LABS: Mononuclear WBC,Body Fluid 79 %; Polynuclear WBC,Body Fluid 21 %; Total Cells Counted,Body Fluid 100
[2021-04-30 16:34] LABS: ALT 25 U/L (4-49); AST 34 U/L (17-59); African American GFR (CKD) >90 (>60 ml/min/1.73 sqM); Albumin 3.4 g/dL (3.5-5.0); Alkaline Phosphatase 352 U/L (38-126); Anion Gap 9 mmol/L; Blood Urea Nitrogen 8 mg/dL (9-20); Calcium 9.1 mg/dL (8.4-10.2); Carbon Dioxide 27 mmol/L (22-30); Chloride 100 mmol/L (98-107); Glucose 100 mg/dL (74-99); Non-African American GFR(CKD) >90 (>60 ml/min/1.73 sqM); Potassium 4.1 mmol/L (3.5-5.1); Sodium 136 mmol/L (137-145); Total Bilirubin 0.7 mg/dL (0.2-1.3); Total Protein 6.8 g/dL (6.3-8.2)
--- NOTE | 2021-04-30 17:10 | XR ---
EXAMINATION TYPE: XR chest 1V DATE OF EXAM: 04/30/2021 COMPARISON: Earlier today HISTORY: 60-year-old male left-sided pneumothorax TECHNIQUE: Single frontal view of the chest is obtained. FINDINGS: Left anterior chest wall AICD generator with right ventricular lead. Redemonstrated left hydropneumot horax. This remains moderate in size and relatively unchanged measuring approximately 4.6 cm at the b ase, 1.5 cm laterally, and slightly increased at the apex extending more medially measuring 4 mm. Sma ll residual pleural effusion. IMPRESSION: Moderate sized left-sided hydropneumothorax relatively similar; pneumothorax component measuring up t o 4.6 cm at the base. Very minimal increase in size at the apex.
[2021-04-30] MEDS: METOPROLOL TARTRATE 25 MG TAB PO SCH (20:54)
[2021-04-30] MEDS: ACETAMINOPHEN TAB 325 MG TAB PO PRN (20:57)
--- NOTE | 2021-04-30 23:08 | P.HPIM ---
History of Present Illness H&P Date: 04/30/21 Patient is a 60-year-old male with a known history of coronary artery disease with history of stent placement x2, ischemic cardiomyopathy status post ICD placement, ejection fraction 30%, currently everyday smoking, hypertension, hyperlipidemia, history of CT and left-sided large pleural effusion. Patient underwent thoracentesis today at the pulmonary clinic. Post procedure chest x- ray showed left-sided pneumothorax extending from the lung apex to the peripheries and to the lung bases. Estimated to be around 30% of the left hemithorax. Patient was admitted to the hospital due to pneumothorax. ROS patient denied any complaints of chest pain. No headache or dizziness or lightheadedness. Shortness of breath did improve. 3.2 L pleural fluid was aspirated. No cough or sputum production. No fever no chills. Laboratory data showed WBC 12.7 hemoglobin 14.6 and platelets 179 Sodium 136 potassium 4.1 chloride 100 bicarb is 27 BUN 18 creatinine 0.6 alk phos 352 Review of Systems Constitutional: Patient denies any fever or chills . No generalized weakness or weight loss. Abdomen: Patient denied nausea vomiting and diarrhea and abdominal pain. Cardiovascular: Patient denies any chest pain or short of breath no palpitations. Respiratory: patient denied any cough or sputum production. No shortness of breath Neurologic: Patient denied any numbness or tingling headache. Musculoskeletal: Patient denies any complaints of joint swelling or deformity. Skin: Negative Psychiatric: Negative Endocrine: No heat or cold intolerance. No recent weight gain. Genitourinary: No dysuria or hematuria. All other 14 point ROS negative except the above Past Medical History Past Medical History: Coronary Artery Disease (CAD), Hyperlipidemia, Hypertension, Myocardial Infarction (CT) Last Myocardial Infarction Date:: 1988 History of Any Multi-Drug Resistant Organisms: None Reported Past Surgical History: Heart Catheterization With Stent Additional Past Surgical History / Comment(s): one cardiac stent 09/27/2018. STENT X1 10/03/2018, AICD Past Anesthesia/Blood Transfusion Reactions: No Reported Reaction, Family History of Problems w/ Anesthesia Additional Past Anesthesia/Blood Transfusion Reaction / Comment(s): sister has diff coming out Date of Last Stent Placement:: 10/03/2018 Smoking Status: Current every day smoker - Past Family History Mother Family Medical History: Cancer Sister(s) Family Medical History: Cancer Father Family Medical History: Cancer Medications and Allergies Home Medications Medication Instructions Recorded Confirmed Type Nitroglycerin Sl Tabs [Nitrostat] 0.4 mg SL Q5M PRN 08/29/18 04/30/21 History Aspirin 81 mg PO DAILY #1 chewable 08/31/18 04/30/21 Rx Metoprolol Tartrate [Lopressor] 25 mg PO BID #60 tab 08/31/18 04/30/21 Rx Spironolactone [Aldactone] 12.5 mg PO DAILY 07/05/19 04/30/21 History Atorvastatin [Lipitor] 80 mg PO DAILY 04/30/21 04/30/21 History Budesonide/Formoterol Fumarate 2 puff INHALATION RT-BID 04/30/21 04/30/21 History [Symbicort 160-4.5 Mcg Inhaler] HYDROcodone/APAP 10-325MG [[place] 1 tab PO Q4H PRN 04/30/21 04/30/21 History 10-325] Ipratropium [place] [Atrovent Hfa] 2 puff INHALATION RT-DAILY PRN 04/30/21 04/30/21 History Latanoprost/Pf [Latanoprost 0.005% 1 drop BOTH EYES HS 04/30/21 04/30/21 History Eye Drop] Levofloxacin [Levaquin] 500 mg PO DAILY@1700 04/30/21 04/30/21 History Losartan [Cozaar] 25 mg PO DAILY 04/30/21 04/30/21 History traMADol HCL 50 mg PO Q6H PRN 04/30/21 04/30/21 History Allergies Allergy/AdvReac Type Severity Reaction Status Date / Time No Known Allergies Allergy Verified 04/30/21 11:33 Physical Exam Vitals: Vital Signs Temp Pulse Pulse Resp BP BP Pulse Ox 04/30/21 20:00 98.0 F 109 H 16 162/83 99 04/30/21 19:57 86 04/30/21 19:46 88 04/30/21 16:45 97.9 F 106 H 20 162/88 100 04/30/21 15:50 92 04/30/21 14:07 97.9 F 95 20 167/82 99 04/30/21 13:33 91 20 153/80 100 04/30/21 13:00 93 20 150/88 98 04/30/21 12:50 80 20 126/75 98 04/30/21 12:39 90 20 107/72 98 04/30/21 11:45 94 18 151/92 97 04/30/21 11:43 97.7 F 94 18 151/92 97 Intake and Output 04/30/21 04/30/21 04/30/21 06:59 14:59 22:59 Intake Total 180 Balance 180 Intake: Oral 180 Other: Weight 67.585 kg PHYSICAL EXAMINATION: Patient is lying in the bed comfortably, no acute distress, awake alert and oriented.. HEENT: Normocephalic. Neck is supple. Pupils reactive. Nostrils clear. Oral cavity is moist. Neck reveals no JVD, carotid bruits, or thyromegaly. CHEST EXAMINATION: Trachea is central. Symmetrical expansion.Left basilar crackles. Nonlabored breathing. No wheezing. CARDIAC: Normal S1, S2 with no gallops. No murmurs ABDOMEN: Soft. Bowel sounds normal. No organomegaly. No abdominal bruits. Extremities: reveal no edema. No clubbing or cyanosis Neurologically awake, alert, oriented x3 with well-coordinated movements. No focal deficits noted Skin: No rash or skin lesions. Psychiatric: Coperative. Nonsuicidal Musculoskeletal: No joint swelling or deformity. Normal range of motion. Results CBC & Chem 7: 04/30/21 15:58 04/30/21 15:58 Labs: Abnormal Lab Results - Last 24 Hours (Table) 04/30/21 04/30/21 Range/Units 15:58 15:58 WBC 12.7 H (3.8-10.6) k/uL MCV 103.7 H (80.0-100.0) fL Neutrophils # 11.1 H (1.3-7.7) k/uL Lymphocytes # 0.8 L (1.0-4.8) k/uL Sodium 136 L (137-145) mmol/L BUN 8 L (9-20) mg/dL Creatinine 0.60 L (0.66-1.25) mg/dL Glucose 100 H (74-99) mg/dL Alkaline Phosphatase 352 H (38-126) U/L Albumin 3.4 L (3.5-5.0) g/dL Microbiology - Last 24 Hours (Table) 04/30/21 12:55 Body Fluid Culture - Preliminary Pleural Fluid 04/30/21 12:55 Acid Fast Bacilli Culture - Preliminary Pleural Fluid Thrombosis Risk Factor Assmnt - DVT/VTE Prophylaxis DVT/VTE Prophylaxis: Pharmacologic Prophylaxis ordered - Choose All That Apply Each Risk Factor Represents 2 Points: Age 61-74 years Thrombosis Risk Factor Assessment Total Risk Factor Score: 2 Thrombosis Risk Factor Assessment Level: Low Risk Assessment and Plan Assessment: Left-sided pneumothorax status post thoracentesis. Left-sided large pleural effusion status post 3.2 L pleural fluid removal with improvement in breathing status.. Ischemic cardiomyopathy with ejection fraction 20%. And history of AICD placement Chronic CHF with systolic dysfunction History of CT Hypertension Hyperlipidemia Coronary artery disease history of stent placement Current everyday smoking DVT prophylaxis with heparin subcu Plan: Patient will be continued on telemetry monitoring, duo nebs and follow-up repeat chest x-ray. Continue to monitor for any symptoms of worsening pneumothorax. Encourage incentive spirometry. Continue with home medications and follow-up closely. Time with Patient: Greater than 30
[2021-05-01 02:16] LABS: Glucose, BF Source Thoracentesis Fluid; Glucose, Body Fluid 92 mg/dL; LDH, Body Fluid Source Thoracentesis Fluid; Total Protein, Body Fluid 3200 mg/dL
--- NOTE | 2021-05-01 07:20 | XR ---
EXAMINATION TYPE: XR chest 1V portable DATE OF EXAM: 05/01/2021 COMPARISON: 04/30/2021 HISTORY: Left-sided pneumothorax TECHNIQUE: Single frontal view of the chest is obtained. FINDINGS: There is a large left-sided pneumothorax which is unchanged compared to prior study. There is interval development of a retrocardiac opacity most likely reflecting atelectasis. Right choco g is clear. Pulmonary vasculature is not congested. The osseous structures are intact. There is mild osteoarthritic change of the glenohumeral joint. There is cardiac pacemaker unchanged in position IMPRESSION: 1. No change in the large left-sided pneumothorax. 2. Development of a retrocardiac opacity most likely reflecting left lower lobe atelectasis.
[2021-05-01] MEDS: IPRATROPIUM 0.5 MG/2.5 ML NEBU INHALATION SCH ×4 (07:38→19:53)
[2021-05-01] MEDS: ATORVASTATIN 80 MG TAB PO SCH (09:28)
[2021-05-01] MEDS: FUROSEMIDE 20 MG TAB PO SCH (09:28)
[2021-05-01] MEDS: LEVOFLOXACIN 500 MG TAB PO SCH (09:28)
[2021-05-01] MEDS: traMADol 50 MG TAB PO SCH (09:29)
[2021-05-01] MEDS: SPIRONOLACTONE 25 MG TAB PO SCH (09:29)
[2021-05-01] MEDS: LOSARTAN 25 MG TAB PO SCH (09:29)
[2021-05-01] MEDS: METOPROLOL TARTRATE 25 MG TAB PO SCH ×2 (09:29→23:35)
[2021-05-01] MEDS: FLUTICASONE 50MCG/SPRAY NASAL 16GM NASAL SCH (09:34)
--- NOTE | 2021-05-01 11:35 | P.PN ---
Subjective Progress Note Date: 05/01/21 58-year-old male patient with a large left-sided pleural effusion was undergoing a thoracentesis today with Dr. Navarrete. Total of 3.2 L of pleural fluid was aspirated from the left lung successfully. Immediately post thoracentesis, the chest x-ray showed a left-sided pneumothorax extending from the lung apex to the peripheries and to the lung bases. The pneumothorax estimated to be around 30% of the left hemithorax. Greatest air collection was in the lung base measuring 4.8 cm in size. There is a residual small left-sided pleural effusion still present. Hemodynamically stable. No complaints. The patient has an AICD in place. He has history of ischemic cardiomyopathy and is has a single chamber AICD. He is known to have CAD, he is known also to have systolic chronic heart failure with an ejection fraction of 20%. The terms of his CAD, he has had a previous coronary stent back in 2019. Postthoracentesis, likely improved in terms of his breathing as the patient was having orthopnea and significant amount of exertional dyspnea prior to him coming into the hospital. He was a few occasions in [facility] he was discharged home and he was told about the pleural effusion. No syncope. No angina. He is a bit lethargic. Pulse ox on room air is order of 94% and is resting comfortably in bed. On examination, breath sounds are diminished on the left compared to the right physical chronic smoker. 05/01/2021, I'm seeing this patient for a follow-up. The chest x-ray from yesterday shows slight increase in the size and the pneumothorax in the left apex. Chest x-ray from today shows a stable large left-sided pneumothorax with some the opacification of the He remains hemodynamically stable. No new complaints otherwise for now. The fluid analysis showed a protein of 3.2 g, LDH of 132, the white cell count was 98, the renal function was stable at creatinine of 0.6 with a BUN of 8 and the sodium level is 136. Objective - Vital Signs Vital signs: Vital Signs Temp 97.6 F 05/01/21 11:18 Pulse 92 05/01/21 11:18 Resp 18 05/01/21 11:18 BP 128/67 05/01/21 11:18 Pulse Ox 95 05/01/21 11:18 Intake & Output 04/30/21 05/01/21 05/01/21 18:59 06:59 18:59 Intake Total 180 240 240 Output Total 275 Balance 180 -35 240 Weight 67.585 kg 62.9 kg Intake: Oral 180 240 240 Output: Urine 275 - Exam Gen. appearance, comfortable not in acute respiratory distress. He is not using excessive muscle breathing. Head exam was generally normal. There was no scleral icterus or corneal arcus. Mucous membranes were moist. Neck was supple and with jugular venous distension, thyromegaly, or carotid bruits. Carotids were easily palpable bilaterally. There was no adenopathy. On examination of the lung sounds, the breath sounds are quite diminished on the left compared to the right specially the left lung base and the breath sounds are essentially asymmetric rated to underlying pneumothorax and some residual left-sided pleural effusion. No significant wheezes. Heart sounds are regular, there is accentuation of the second heart sound along with a gallop rhythm. No significant murmurs appreciated. Abdominal exam revealed normal bowel sounds. The abdomen was soft, non-tender, and without masses, organomegaly, or appreciable enlargement of the abdominal aorta. Examination of the extremities revealed easily palpable radial, femoral and pedal pulses. There was cyanosis and digital clubbing with trace edema in the lower extremities bilaterally.. Examination of the skin revealed no evidence of significant rashes, suspicious appearing nevi or other concerning lesions. Neurologically, the patient is awake and alert and the patient does not have any focal neurological deficit. Cranial nerves are essentially intact. - Labs CBC & Chem 7: 04/30/21 15:58 04/30/21 15:58 Labs: Abnormal Lab Results - Last 24 Hours (Table) 04/30/21 04/30/21 Range/Units 15:58 15:58 WBC 12.7 H (3.8-10.6) k/uL MCV 103.7 H (80.0-100.0) fL Neutrophils # 11.1 H (1.3-7.7) k/uL Lymphocytes # 0.8 L (1.0-4.8) k/uL Sodium 136 L (137-145) mmol/L BUN 8 L (9-20) mg/dL Creatinine 0.60 L (0.66-1.25) mg/dL Glucose 100 H (74-99) mg/dL Alkaline Phosphatase 352 H (38-126) U/L Albumin 3.4 L (3.5-5.0) g/dL Microbiology - Last 24 Hours (Table) 04/30/21 12:55 Gram Stain - Preliminary Pleural Fluid Body Fluid Culture - Preliminary 04/30/21 12:55 Acid Fast Bacilli Culture - Preliminary Pleural Fluid Assessment and Plan Plan: 1 iatrogenically pneumothorax, left-sided postthoracentesis, consider trapped lung as the patient may have had chronic left-sided pleural effusion with significant amount of atelectasis involving the left lung. Left lung is adequately expanded. There is a 30% pneumothorax postthoracentesis noted. No evidence of any tension pneumothorax. No significant hypoxemia. No development of any significant shortness of breath. The chest x-ray showing a stable left- sided pneumothorax which is fairly large in size extending to the apex. There is also the evacuation of the left-sided pleural effusion. 2 large left-sided pleural effusion, consider secondary to heart failure/cardiomyopathy. Most likely a transudate based on the fluid characteristics, cytology still pending 3 history of ischemic cardiomyopathy with ejection fraction of around 20% 4 history of left-sided AICD single chamber placement for his underlying ischemic cardiomyopathy 5 coronary artery disease with previous [place], previous coronary stenting back in 2018 and 2019, currently free of any angina 6 diabetes mellitus 7 COPD A smoker 9 hyperlipidemia Plan I reviewed the series of chest x-rays. I think it's possible to insert a thoracentesis and to evacuate a left-sided pneumothorax and this can be inserted just below his AICD. I will do it at the bedside. Repeat chest x-ray will be done to assess progression.
[2021-05-01] MEDS ORDERED: LIDOCAINE 2% INJ 20 MG/ML (20 ML MDV) ONE ×2 (11:37→11:42)
--- NOTE | 2021-05-01 12:24 | P.PCN ---
Date of Procedure: 05/01/21 Preoperative Diagnosis: Pneumothorax, left Postoperative Diagnosis: Pneumothorax, left Procedure(s) Performed: Insertion of a Thoravent Active Anesthesia: local Surgeon: Leonard Zaldivar Pathology: other Condition: stable Operative Findings: This procedure was done at the bedside. The skin over the anterior chest on the left was cleaned using ChloraPrep. The intercostal space just under the defibrillator pocket was identified. The subcutaneous tissue was infiltrated with 1% lidocaine. The needle was introduced into the pleural space and air was aspirated from the left hemithorax. Subsequently, ahorizontal incision was done using a scalpel. Following that, a 11-[place] fluoroscopy vent catheter was introduced in the left hemithorax using a trocar. Trocar was removed. The catheter was pushed in place and aspiration of the left pneumothorax was done using a three-way valve. The catheter was secured in place. No bedside competitions. Chest x-ray was ordered to rule out pneumothorax. The patient tolerated the procedure well without any complication. We'll connect the Thoravent to a Pleur-evac if there is any persistent pneumothorax on the chest x-ray.
--- NOTE | 2021-05-01 12:57 | XR ---
EXAMINATION TYPE: XR chest 1V DATE OF EXAM: 05/01/2021 COMPARISON: 05/01/2021 HISTORY: Post thoracotomy placement TECHNIQUE: Single frontal view of the chest is obtained. FINDINGS: There is a left-sided hydropneumothorax. There are advanced seen in position and there is a cardiac d evice and underlying COPD. There remains a pneumothorax which is appears to be slightly reduced from the prior exam. IMPRESSION: 1. Left-sided consolidation and hydropneumothorax slightly reduced from prior exam. Small chest tube now noted in position.
[2021-05-01] MEDS: HYDROcodone/APAP 10-325MG 1 EACH TAB PO PRN (13:23)
[2021-05-02] MEDS: ACETAMINOPHEN TAB 325 MG TAB PO PRN (02:08)
[2021-05-02] MEDS: IPRATROPIUM 0.5 MG/2.5 ML NEBU INHALATION SCH ×4 (07:57→19:02)
[2021-05-02] MEDS: LEVOFLOXACIN 500 MG TAB PO SCH (09:20)
[2021-05-02] MEDS: traMADol 50 MG TAB PO SCH (09:20)
[2021-05-02] MEDS: ATORVASTATIN 80 MG TAB PO SCH (09:20)
[2021-05-02] MEDS: SPIRONOLACTONE 25 MG TAB PO SCH (09:20)
[2021-05-02] MEDS: METOPROLOL TARTRATE 25 MG TAB PO SCH ×2 (09:21→21:28)
[2021-05-02] MEDS: FUROSEMIDE 20 MG TAB PO SCH (09:21)
[2021-05-02] MEDS: LOSARTAN 25 MG TAB PO SCH (09:21)
[2021-05-02] MEDS: FLUTICASONE 50MCG/SPRAY NASAL 16GM NASAL SCH (09:23)
[2021-05-02] MEDS: HYDROcodone/APAP 10-325MG 1 EACH TAB PO PRN (11:51)
--- NOTE | 2021-05-02 12:14 | P.PN ---
Subjective Progress Note Date: 05/02/21 58-year-old male patient with a large left-sided pleural effusion was undergoing a thoracentesis today with Dr. Navarrete. Total of 3.2 L of pleural fluid was aspirated from the left lung successfully. Immediately post thoracentesis, the chest x-ray showed a left-sided pneumothorax extending from the lung apex to the peripheries and to the lung bases. The pneumothorax estimated to be around 30% of the left hemithorax. Greatest air collection was in the lung base measuring 4.8 cm in size. There is a residual small left-sided pleural effusion still present. Hemodynamically stable. No complaints. The patient has an AICD in place. He has history of ischemic cardiomyopathy and is has a single chamber AICD. He is known to have CAD, he is known also to have systolic chronic heart failure with an ejection fraction of 20%. The terms of his CAD, he has had a previous coronary stent back in 2019. Postthoracentesis, likely improved in terms of his breathing as the patient was having orthopnea and significant amount of exertional dyspnea prior to him coming into the hospital. He was a few occasions in [facility] he was discharged home and he was told about the pleural effusion. No syncope. No angina. He is a bit lethargic. Pulse ox on room air is order of 94% and is resting comfortably in bed. On examination, breath sounds are diminished on the left compared to the right physical chronic smoker. 05/01/2021, I'm seeing this patient for a follow-up. The chest x-ray from yesterday shows slight increase in the size and the pneumothorax in the left apex. Chest x-ray from today shows a stable large left-sided pneumothorax with some the opacification of the He remains hemodynamically stable. No new complaints otherwise for now. The fluid analysis showed a protein of 3.2 g, LDH of 132, the white cell count was 98, the renal function was stable at creatinine of 0.6 with a BUN of 8 and the sodium level is 136. 05/02/2021, I did not see any significant air leak from the Thoravent. I did some manual suctioning of the residual pneumothorax that was seen on the chest x-ray which was smaller in size. Following that, I removed the Thoravent in place which was essentially did not have any air output or fluid output over the past 12-24 hours. The chest x-ray shows diminution of the left-sided pneumothorax. Although there is some persistent low-grade pneumothorax and left lung base. The patient's is resting comfortably in bed. The patient is on room air oxygen. Follow-up chest x-rays to follow. He'll be encouraged to use incentive spirometer. Objective - Vital Signs Vital signs: Vital Signs Temp 97.3 F L 05/02/21 04:00 Pulse 83 05/02/21 11:27 Resp 16 05/02/21 04:00 BP 133/76 05/02/21 04:00 Pulse Ox 97 05/02/21 07:57 Intake & Output 05/01/21 05/02/21 05/02/21 18:59 06:59 18:59 Intake Total 1040 240 Output Total 170 627 Balance 870 -627 240 Weight 63.3 kg Intake: Oral 1040 240 Output: Chest Tube Drainage 120 17 Thora-Vent Left Upper 120 17 Urine 50 610 Other: # Voids 2 - Exam Gen. appearance, comfortable not in acute respiratory distress. He is not using excessive muscle breathing. Head exam was generally normal. There was no scleral icterus or corneal arcus. Mucous membranes were moist. Neck was supple and with jugular venous distension, thyromegaly, or carotid bruits. Carotids were easily palpable bilaterally. There was no adenopathy. On examination of the lung sounds, the breath sounds are quite diminished on the left compared to the right , the thoravent was removed Abdominal exam revealed normal bowel sounds. The abdomen was soft, non-tender, and without masses, organomegaly, or appreciable enlargement of the abdominal aorta. Examination of the extremities revealed easily palpable radial, femoral and pedal pulses. There was cyanosis and digital clubbing with trace edema in the lower extremities bilaterally.. Examination of the skin revealed no evidence of significant rashes, suspicious appearing nevi or other concerning lesions. Neurologically, the patient is awake and alert and the patient does not have any focal neurological deficit. Cranial nerves are essentially intact. - Labs CBC & Chem 7: 04/30/21 15:58 04/30/21 15:58 Labs: Microbiology - Last 24 Hours (Table) 04/30/21 12:55 Gram Stain - Preliminary Pleural Fluid Body Fluid Culture - Preliminary 04/30/21 12:55 Acid Fast Bacilli Smear - Final Pleural Fluid Acid Fast Bacilli Culture - Preliminary Assessment and Plan Plan: 1 Iatrogenically pneumothorax, left-sided postthoracentesis, consider trapped lung as the patient may have had chronic left-sided pleural effusion with significant amount of atelectasis involving the left lung. Left lung is adequately expanded. There is a 30% pneumothorax postthoracentesis noted. No evidence of any tension pneumothorax. No significant hypoxemia. No development of any significant shortness of breath. I inserted a thoravent. I did manual suctioning. No persistent air leak. Based on no air or fluid output, I removed the thoravent, there is chest x-ray post aspiration showed no evidence of any pneumothorax. 2 large left-sided pleural effusion, consider secondary to heart failure/car diomyopathy. Most likely a transudate based on the fluid characteristics, cytology still pending 3 history of ischemic cardiomyopathy with ejection fraction of around 20% 4 history of left-sided AICD single chamber placement for his underlying ischemic cardiomyopathy 5 coronary artery disease with previous [place], previous coronary stenting back in 2018 and 2019, currently free of any angina 6 diabetes mellitus 7 COPD A smoker 9 hyperlipidemia Plan Thoravent was removed post manual suctioning. The subsequent chest x-ray shows the expression of the left lung. There is some residual pleural effusion. No evidence of any pneumothorax at this point in time. The patient will be monitored clinically.
--- NOTE | 2021-05-02 12:19 | XR ---
EXAMINATION TYPE: XR chest 1V portable DATE OF EXAM: 05/02/2021 COMPARISON: 05/01/2021 HISTORY: Chest tube removal TECHNIQUE: Single frontal view of the chest is obtained. FINDINGS: There is a small left pleural effusion with basilar consolidation elevated diaphragm. Ther e is a less than 5% left apical pneumothorax. Right lung clear. Cardiac device noted. Heart size stab le. Arthropathy of the shoulders. IMPRESSION: 1. Small left-sided pleural effusion with basilar infiltrate. Less than 5% left apical pneumothorax.
--- NOTE | 2021-05-02 23:12 | P.PN ---
Subjective Progress Note Date: 05/01/21 Principal diagnosis: Iatrogenic pneumothorax status post thoracentesis. Patient is a 60-year-old male with a known history of coronary artery disease with history of stent placement x2, ischemic cardiomyopathy status post ICD placement, ejection fraction 30%, currently everyday smoking, hypertension, hyperlipidemia, history of DC and left-sided large pleural effusion. Patient underwent thoracentesis today at the pulmonary clinic. Post procedure chest x- ray showed left-sided pneumothorax extending from the lung apex to the peripheries and to the lung bases. Estimated to be around 30% of the left hemithorax. Patient was admitted to the hospital due to pneumothorax. ROS patient denied any complaints of chest pain. No headache or dizziness or lightheadedness. Shortness of breath did improve. 3.2 L pleural fluid was aspirated. No cough or sputum production. No fever no chills. Laboratory data showed WBC 12.7 hemoglobin 14.6 and platelets 179 Sodium 136 potassium 4.1 chloride 100 bicarb is 27 BUN 18 creatinine 0.6 alk phos 352 05/01/2021 Patient is currently resting in the bed. Chest x-ray showed no change in the large left-sided pneumothorax. Development of a retrocardiac opacity most likely reflecting left lower lobe atelectasis. Pulmonary inserted Thora vent active. Denied any complaints of chest pain. No fever no chills. No nausea vomiting or abdominal pain. Current medications reviewed. Objective - Vital Signs Vital signs: Vital Signs Temp 98.0 F 05/01/21 20:00 Pulse 88 05/01/21 20:03 Resp 18 05/01/21 20:00 BP 107/68 05/01/21 20:00 Pulse Ox 96 05/01/21 20:00 Intake & Output 05/01/21 05/01/21 05/02/21 06:59 18:59 06:59 Intake Total 240 1040 Output Total 275 170 80 Balance -35 870 -80 Weight 62.9 kg Intake: Oral 240 1040 Output: Chest Tube Drainage 120 Thora-Vent Left Upper 120 Urine 275 50 80 Other: # Voids 1 - Exam PHYSICAL EXAMINATION: Patient is lying in the bed comfortably, no acute distress, awake alert and oriented.. HEENT: Normocephalic. Neck is supple. Pupils reactive. Nostrils clear. Oral cavity is moist. Neck reveals no JVD, carotid bruits, or thyromegaly. CHEST EXAMINATION: Trachea is central. Symmetrical expansion.Left sided crackles Nonlabored breathing. No wheezing. CARDIAC: Normal S1, S2 with no gallops. No murmurs ABDOMEN: Soft. Bowel sounds normal. No organomegaly. No abdominal bruits. Extremities: reveal no edema. No clubbing or cyanosis Neurologically awake, alert, oriented x3 with well-coordinated movements. No focal deficits noted Skin: No rash or skin lesions. Psychiatric: Coperative. Nonsuicidal Musculoskeletal: No joint swelling or deformity. Normal range of motion. - Labs CBC & Chem 7: 04/30/21 15:58 04/30/21 15:58 Labs: Microbiology - Last 24 Hours (Table) 04/30/21 12:55 Acid Fast Bacilli Smear - Final Pleural Fluid Acid Fast Bacilli Culture - Preliminary 04/30/21 12:55 Gram Stain - Preliminary Pleural Fluid Body Fluid Culture - Preliminary Assessment and Plan Assessment: Left-sided pneumothorax status post thoracentesis. Left-sided large pleural effusion status post 3.2 L pleural fluid removal with improvement in breathing status.. Ischemic cardiomyopathy with ejection fraction 20%. And history of AICD placement Chronic CHF with systolic dysfunction History of DC Hypertension Hyperlipidemia Coronary artery disease history of stent placement Current everyday smoking DVT prophylaxis with heparin subcu Plan: Patient will be continued on telemetry monitoring, duo nebs and follow-up repeat chest x-ray. Thora vent was inserted today. Continue to monitor for any symptoms of worsening pneumothorax. Encourage incentive spirometry. Continue with home medications and follow-up closely.
--- NOTE | 2021-05-02 23:15 | P.PN ---
Subjective Progress Note Date: 05/02/21 Principal diagnosis: Iatrogenic pneumothorax status post thoracentesis. Patient is a 60-year-old male with a known history of coronary artery disease with history of stent placement x2, ischemic cardiomyopathy status post ICD placement, ejection fraction 30%, currently everyday smoking, hypertension, hyperlipidemia, history of LA and left-sided large pleural effusion. Patient underwent thoracentesis today at the pulmonary clinic. Post procedure chest x- ray showed left-sided pneumothorax extending from the lung apex to the peripheries and to the lung bases. Estimated to be around 30% of the left hemithorax. Patient was admitted to the hospital due to pneumothorax. ROS patient denied any complaints of chest pain. No headache or dizziness or lightheadedness. Shortness of breath did improve. 3.2 L pleural fluid was aspirated. No cough or sputum production. No fever no chills. Laboratory data showed WBC 12.7 hemoglobin 14.6 and platelets 179 Sodium 136 potassium 4.1 chloride 100 bicarb is 27 BUN 18 creatinine 0.6 alk phos 352 05/01/2021 Patient is currently resting in the bed. Chest x-ray showed no change in the large left-sided pneumothorax. Development of a retrocardiac opacity most likely reflecting left lower lobe atelectasis. Pulmonary inserted Thora vent active. Denied any complaints of chest pain. No fever no chills. No nausea vomiting or abdominal pain. 05/02/2021 Patient is currently resting in the bed. Awake alert. Throat event was removed. No air output fluid output over the past 12 to 24 hours. Follow-up x-ray showed small left-sided pleural effusion with basilar right infiltrate. Less than 5% left apical pneumothorax noted. Patient has been afebrile. Saturating at 94% on room air. Patient was encouraged with incentive spirometry. Current medications reviewed. Objective - Vital Signs Vital signs: Vital Signs Temp 97.9 F 05/02/21 20:00 Pulse 96 05/02/21 20:00 Resp 16 05/02/21 20:00 BP 114/68 05/02/21 20:00 Pulse Ox 94 L 05/02/21 20:00 Intake & Output 05/02/21 05/02/21 05/03/21 06:59 18:59 06:59 Intake Total 480 Output Total 627 15 350 Balance -627 465 -350 Weight 63.3 kg Intake: Oral 480 Output: Chest Tube Drainage 17 15 Thora-Vent Left Upper 17 15 Urine 610 350 Other: # Voids 2 1 # Bowel Movements 1 - Exam PHYSICAL EXAMINATION: Patient is lying in the bed comfortably, no acute distress, awake alert and oriented.. HEENT: Normocephalic. Neck is supple. Pupils reactive. Nostrils clear. Oral cav ity is moist. Neck reveals no JVD, carotid bruits, or thyromegaly. CHEST EXAMINATION: Trachea is central. Symmetrical expansion.Left sided crackles Nonlabored breathing. No wheezing. CARDIAC: Normal S1, S2 with no gallops. No murmurs ABDOMEN: Soft. Bowel sounds normal. No organomegaly. No abdominal bruits. Extremities: reveal no edema. No clubbing or cyanosis Neurologically awake, alert, oriented x3 with well-coordinated movements. No focal deficits noted Skin: No rash or skin lesions. Psychiatric: Coperative. Nonsuicidal Musculoskeletal: No joint swelling or deformity. Normal range of motion. - Labs CBC & Chem 7: 04/30/21 15:58 04/30/21 15:58 Labs: Microbiology - Last 24 Hours (Table) 04/30/21 12:55 Gram Stain - Preliminary Pleural Fluid Body Fluid Culture - Preliminary 04/30/21 12:55 Acid Fast Bacilli Smear - Final Pleural Fluid Acid Fast Bacilli Culture - Preliminary Assessment and Plan Assessment: Left-sided pneumothorax status post thoracentesis. Left-sided large pleural effusion status post 3.2 L pleural fluid removal with improvement in breathing status.. Ischemic cardiomyopathy with ejection fraction 20%. And history of AICD placement Chronic CHF with systolic dysfunction History of LA Hypertension Hyperlipidemia Coronary artery disease history of stent placement Current everyday smoking DVT prophylaxis with heparin subcu Plan: Patient will be continued on telemetry monitoring, duo nebs and follow-up repeat chest x-ray. Thora vent was removed today. Continue to monitor for any symptoms of worsening pneumothorax. Encourage in centive spirometry. Continue with home medications and follow-up closely.
[2021-05-03 01:19] VITALS: RESP 18
[2021-05-03] MEDS: HYDROcodone/APAP 10-325MG 1 EACH TAB PO PRN (02:53)
[2021-05-03 08:10] LABS: African American GFR (CKD) >90 (>60 ml/min/1.73 sqM); Anion Gap 6 mmol/L; Blood Urea Nitrogen 13 mg/dL (9-20); Calcium 8.6 mg/dL (8.4-10.2); Carbon Dioxide 27 mmol/L (22-30); Chloride 101 mmol/L (98-107); Glucose 110 mg/dL (74-99); Non-African American GFR(CKD) >90 (>60 ml/min/1.73 sqM); Potassium 3.9 mmol/L (3.5-5.1); Sodium 134 mmol/L (137-145)
--- NOTE | 2021-05-03 08:23 | XR ---
EXAMINATION TYPE: XR chest 1V DATE OF EXAM: 05/03/2021 COMPARISON: 05/02/2021 INDICATION: Pneumothorax TECHNIQUE: Single frontal view of the chest is obtained. FINDINGS: The heart size is mildly prominent. The pulmonary vasculature is normal. Left lower lobe infiltrate is present. Small left pleural effusion. There is elevation left diaphragm . Pacemaker overlies left chest. IMPRESSION: 1. Mild worsening left lower lobe infiltrate. Small left pleural effusion is present.
[2021-05-03] MEDS: ATORVASTATIN 80 MG TAB PO SCH (08:30)
[2021-05-03] MEDS: METOPROLOL TARTRATE 25 MG TAB PO SCH (08:30)
[2021-05-03] MEDS: LOSARTAN 25 MG TAB PO SCH (08:30)
[2021-05-03] MEDS: traMADol 50 MG TAB PO SCH (08:31)
[2021-05-03] MEDS: SPIRONOLACTONE 25 MG TAB PO SCH (08:32)
[2021-05-03] MEDS: LEVOFLOXACIN 500 MG TAB PO SCH (08:32)
[2021-05-03] MEDS: FUROSEMIDE 20 MG TAB PO SCH (08:32)
[2021-05-03] MEDS: FLUTICASONE 50MCG/SPRAY NASAL 16GM NASAL SCH (08:33)
[2021-05-03] MEDS: IPRATROPIUM 0.5 MG/2.5 ML NEBU INHALATION SCH ×2 (08:35→11:45)
[2021-05-03 08:44] VITALS: BP 126/69; TEMP 96.9
[2021-05-03 08:44] LABS: Basophils % (A) 0 %; Eosinophils # (A) 0.3 k/uL (0-0.7); Eosinophils % (A) 2 %; HCT 39.7 % (39.0-53.0); HGB 13.3 gm/dL (13.0-17.5); Lymphocytes # (A) 1.3 k/uL (1.0-4.8); Lymphocytes % (A) 11 %; MCHC 33.4 g/dL (31.0-37.0); MCV 101.6 fL (80.0-100.0); Macrocytosis Slight; Mean Platelet Volume 8.8; Monocytes # (A) 1.5 k/uL (0-1.0); Monocytes % (A) 13 %; Neutrophils % (A) 71 %; Platelet Count 166 k/uL (150-450); RBC 3.91 m/uL (4.30-5.90); RDW 14.5 % (11.5-15.5); WBC 11.3 k/uL (3.8-10.6)
[2021-05-03 11:47] VITALS: PULSE 88
--- NOTE | 2021-05-03 13:19 | P.PN ---
Subjective Progress Note Date: 05/03/21 Principal diagnosis: Iatrogenic pneumothorax, left-sided, postthoracentesis 58-year-old male patient with a large left-sided pleural effusion was undergoing a thoracentesis today with Dr. Navarrete. Total of 3.2 L of pleural fluid was aspirated from the left lung successfully. Immediately post thoracentesis, the chest x-ray showed a left-sided pneumothorax extending from the lung apex to the peripheries and to the lung bases. The pneumothorax estimated to be around 30% of the left hemithorax. Greatest air collection was in the lung base measuring 4.8 cm in size. There is a residual small left-sided pleural effusion still present. Hemodynamically stable. No complaints. The patient has an AICD in place. He has history of ischemic cardiomyopathy and is has a single chamber AICD. He is known to have CAD, he is known also to have systolic chronic heart failure with an ejection fraction of 20%. The terms of his CAD, he has had a previous coronary stent back in 2019. Postthoracentesis, likely improved in terms of his breathing as the patient was having orthopnea and significant amount of exertional dyspnea prior to him coming into the hospital. He was a few occasions in [facility] he was discharged home and he was told about the pleural effusion. No syncope. No angina. He is a bit lethargic. Pulse ox on room air is order of 94% and is resting comfortably in bed. On examination, breath sounds are diminished on the left compared to the right physical chronic smoker. 05/01/2021, I'm seeing this patient for a follow-up. The chest x-ray from yesterday shows slight increase in the size and the pneumothorax in the left apex. Chest x-ray from today shows a stable large left-sided pneumothorax with some the opacification of the He remains hemodynamically stable. No new complaints otherwise for now. The fluid analysis showed a protein of 3.2 g, LDH of 132, the white cell count was 98, the renal function was stable at creatinine of 0.6 with a BUN of 8 and the sodium level is 136. 05/02/2021, I did not see any significant air leak from the Thoravent. I did some manual suctioning of the residual pneumothorax that was seen on the chest x-ray which was smaller in size. Following that, I removed the Thoravent in place which was essentially did not have any air output or fluid output over the past 12-24 hours. The chest x-ray shows diminution of the left-sided pneumothorax. Although there is some persistent low-grade pneumothorax and left lung base. The patient's is resting comfortably in bed. The patient is on room air oxygen. Follow-up chest x-rays to follow. He'll be encouraged to use incentive spirometer. On 05/03/2021 patient seen in follow-up on selective care unit. He is resting comfortably in bed, currently on room air with pulse ox of 97%, his vital signs have been stable, he has had no complaints of shortness of breath, or chest discomfort, no cough, no wheezing. Patient is status post left-sided thoracentesis with Dr. Navarrete on 04/30/2021 with removal of large amount of pleural fluid which was straw-colored in appearance with a total of 3.25l. Following the procedure patient had a small left pneumothorax which had been observed over the weekend, today's chest x-ray shows mild worsening in the left lower lobe infiltrate, small left pleural effusion, but no evidence of pneumothorax. Patient has been working on the incentive spirometer, his been encouraged to do so and he is achieving about 500 mL on the today, clinically he seems to be asymptomatic, denies any specific complaints. His pleural fluid cytology is still pending for now, cultures of the pleural fluid have shown no growth. His labs have been reviewed, his white blood cell count is 11.3, hemoglobin is 13.3, sodium is 134, potassium is 3.9, his BUN was 13, creatinine 0.55 Objective - Vital Signs Vital signs: Vital Signs Temp 96.9 F L 05/03/21 08:30 Pulse 88 05/03/21 11:57 Resp 18 05/03/21 08:30 BP 126/69 05/03/21 08:30 Pulse Ox 97 05/03/21 08:35 Intake & Output 05/02/21 05/03/21 05/03/21 18:59 06:59 18:59 Intake Total 480 240 Output Total 15 650 225 Balance 465 -650 15 Weight 64.9 kg Intake: Oral 480 240 Output: Chest Tube Drainage 15 Thora-Vent Left Upper 15 Urine 650 225 Other: # Voids 1 # Bowel Movements 1 - Exam GENERAL EXAM: Alert, very pleasant, 60-year-old white male, on room air, with a pulse ox of 97%, comfortable in no apparent distress. HEAD: Normocephalic/atraumatic. EYES: Normal reaction of pupils, equal size. Conjunctiva pink, sclera white. NOSE: Clear with pink turbinates. THROAT: No erythema or exudates. NECK: No masses, no JVD, no thyroid enlargement, no adenopathy. CHEST: No chest wall deformity. Symmetrical expansion. Left upper chest AICD/pacemaker site is clean dry and intact. His left thoravent insertion site is clean dry and intact LUNGS: Equal air entry with no crackles, wheeze, rhonchi or dullness. CVS: Regular rate and rhythm, normal S1 and S2, no gallops, no murmurs, no rubs ABDOMEN: Soft, nontender. No hepatosplenomegaly, normal bowel sounds, no guarding or rigidity. EXTREMITIES: No clubbing, no edema, no cyanosis, 2+ pulses and upper and lower extremities. MUSCULOSKELETAL: Muscle strength and tone normal. SPINE: No scoliosis or deformity SKIN: No rashes CENTRAL NERVOUS SYSTEM: Alert and oriented -3. No focal deficits, tone is normal in all 4 extremities. PSYCHIATRIC: Alert and oriented -3. Appropriate affect. Intact judgment and insight. - Labs CBC & Chem 7: 05/03/21 07:04 05/03/21 07:04 Labs: Abnormal Lab Results - Last 24 Hours (Table) 05/03/21 05/03/21 Range/Units 07:04 07:04 WBC 11.3 H (3.8-10.6) k/uL RBC 3.91 L (4.30-5.90) m/uL MCV 101.6 H (80.0-100.0) fL Neutrophils # 8.0 H (1.3-7.7) k/uL Monocytes # 1.5 H (0-1.0) k/uL Sodium 134 L (137-145) mmol/L Creatinine 0.55 L (0.66-1.25) mg/dL Glucose 110 H (74-99) mg/dL Microbiology - Last 24 Hours (Table) 04/30/21 12:55 Gram Stain - Preliminary Pleural Fluid Body Fluid Culture - Preliminary Assessment and Plan Plan: 1 Iatrogenically pneumothorax, left-sided postthoracentesis, consider trapped lung as the patient may have had chronic left-sided pleural effusion with significant amount of atelectasis involving the left lung. Left lung is adequately expanded. There is a 30% pneumothorax postthoracentesis noted. No evidence of any tension pneumothorax. No significant hypoxemia. No development of any significant shortness of breath. I inserted a thoravent. I did manual suctioning. No persistent air leak. Based on no air or fluid output, I removed the thoravent, there is chest x-ray post aspiration showed no evidence of any pneumothorax. 2 large left-sided pleural effusion, consider secondary to heart failure/cardiomyopathy. Most likely a transudate based on the fluid characteristics, cytology still pending 3 history of ischemic cardiomyopathy with ejection fraction of around 20% 4 history of left-sided AICD single chamber placement for his underlying ischemi c cardiomyopathy 5 coronary artery disease with previous [place], previous coronary stenting back in 2018 and 2019, currently free of any angina 6 diabetes mellitus 7 COPD A smoker 9 hyperlipidemia Plan: Today's chest x-ray has been reviewed showing no pneumothorax following insertion of the Thoravent with aspiration of the left pneumothorax Clinically stable Breathing easy Encourage deep breathing and coughing and incentive spirometry use There is some residual left pleural effusion and left atelectasis From pulmonary perspective he can be considered for discharge home today with outpatient follow-up with Dr. Maher in the office I performed a history & physical examination of the patient and discussed their management with my nurse practitioner, Juhi Almonte. I reviewed the nurse kvng waterman's note and agree with the documented findings and plan of care. Lung sounds are positive for diminished breath sounds. The findings and the impression was discussed with the patient. I attest to the documentation by the nurse practitioner. Time with Patient: Less than 30
--- NOTE | 2021-05-03 20:17 | P.DS ---
Providers Date of admission: 04/30/21 13:31 Expected date of discharge: 05/03/21 Attending physician: Arnol Holm Consults: 04/30/21 15:03 Consult Physician Stat Consulting Provider: Yusra Maher Reason/Comments: Recent thoracentesis with left pneumothorax Do you want consulting provider notified?: Yes Primary care physician: Veto Peralta Hospital Course: Hospital course: Patient is a 60-year-old male, who follows with Dr. Peralta, with a known history of coronary artery disease with history of stent placement x2, ischemic cardiomyopathy status post ICD placement, ejection fraction 30%, currently everyday smoking, hypertension, hyperlipidemia, history of MS and left-sided large pleural effusion. Patient underwent thoracentesis at the pulmonary clinic. Post procedure chest x-ray showed left-sided pneumothorax extending from the lung apex to the peripheries and to the lung bases. Estimated to be around 30% of the left hemithorax. Patient was admitted to the hospital due to pneumothorax. ROS patient denied any complaints of chest pain. No headache or dizziness or lightheadedness. Shortness of breath did improve. 3.2 L pleural fluid was aspirated. No cough or sputum production. No fever no chills. Laboratory data showed WBC 12.7 hemoglobin 14.6 and platelets 179 Sodium 136 potassium 4.1 chloride 100 bicarb is 27 BUN 18 creatinine 0.6 alk phos 352 05/01/2021 Patient is currently resting in the bed. Chest x-ray showed no change in the large left-sided pneumothorax. Development of a retrocardiac opacity most likely reflecting left lower lobe atelectasis. Pulmonary inserted Thora vent active. Denied any complaints of chest pain. No fever no chills. No nausea vomiting or abdominal pain. 05/02/2021 Patient is currently resting in the bed. Awake alert. Thora-vent was removed. No air output fluid output over the past 12 to 24 hours. Follow-up x-ray showed small left-sided pleural effusion with basilar right infiltrate. Less than 5% left apical pneumothorax noted. Patient has been afebrile. Saturating at 94% on room air. Patient was encouraged with incentive spirometry May 03: Breathing better. Using incentive spirometry. Chronically decreased appetite. Cleared by pulmonary. Follow with Dr. Maher in the office. Cytology is pending Discussion and discharge planning more than 35 minutes On examination: VITAL SIGNS: [96.9, 91, 18, 1 26 x 69, 96% on room air] GENERAL APPEARANCE: Reclining in bed, comfortable. HEENT: Normal external appearance of nose and ear. Oral cavity normal EYES: Pupils equal. Conjunctiva normal. NECK: JVD not raised. Mass not palpable. RESPIRATORY: Respiratory effort increased. Decreased breath sounds CARDIOVASCULAR: First and second sounds normal. No edema. ABDOMEN: Soft. Liver and spleen not palpable. No tenderness. No mass palpable. PSYCHIATRY: Alert and oriented x3. Mood and affect normal. Investigations: Chest x-ray infiltrate: Some infiltrate. Small left pleural effusion. White count 9.3 hemoglobin 13.3 platelets 166 potassium 3.9 creatinine 0.55 Pleural fluid: Nuclear cells 98 fluid glucose 92 fluid LDH 132 fluid protein 3200 Assessment and plan: -Iatrogenic Left-sided pneumothorax following thoracentesis. Treated with Thora-vent. Discontinued -Left-sided large pleural effusion status post 3.2 L pleural fluid removal with improvement in breathing status.. Cytology pending. Will follow up with Dr. Maher -Chronic congestive heart failure from ischemic cardiomyopathy ejection fraction 20%. Aldactone 12.5 mg. Lasix 20 mg daily. Cozaar 25 mg -Essential Hypertension Lopressor 25 mg twice a day. Cozaar 25 mg daily. -AICD -Hyperlipidemia Lipitor 80 mg daily -Coronary artery disease history of stent Aspirin, Coreg, Lipitor, Cozaar -COPD in a current smoker Symbicort 160/4.5 Disposition: Home Plan - Discharge Summary Discharge Rx Participant: No New Discharge Prescriptions: New Furosemide [Lasix] 20 mg PO DAILY #30 tab Continue Nitroglycerin Sl Tabs [Nitrostat] 0.4 mg SL Q5M PRN PRN Reason: CHEST PAIN Aspirin 81 mg PO DAILY #1 chewable Metoprolol Tartrate [Lopressor] 25 mg PO BID #60 tab Spironolactone [Aldactone] 12.5 mg PO DAILY Losartan [Cozaar] 25 mg PO DAILY traMADol HCL 50 mg PO Q6H PRN PRN Reason: Pain Ipratropium [place] [Atrovent Hfa] 2 puff INHALATION RT-DAILY PRN PRN Reason: Shortness Of Breath Atorvastatin [Lipitor] 80 mg PO DAILY Levofloxacin [Levaquin] 500 mg PO DAILY@1700 HYDROcodone/APAP 10-325MG [[place] 10-325] 1 tab PO Q4H PRN PRN Reason: Pain Budesonide/Formoterol Fumarate [Symbicort 160-4.5 Mcg Inhaler] 2 puff INHALATION RT-BID Latanoprost/Pf [Latanoprost 0.005% Eye Drop] 1 drop BOTH EYES HS Discharge Medication List Nitroglycerin Sl Tabs [Nitrostat] 0.4 mg SL Q5M PRN 08/29/18 [History] Aspirin 81 mg PO DAILY #1 chewable 08/31/18 [Rx] Metoprolol Tartrate [Lopressor] 25 mg PO BID #60 tab 08/31/18 [Rx] Spironolactone [Aldactone] 12.5 mg PO DAILY 07/05/19 [History] Atorvastatin [Lipitor] 80 mg PO DAILY 04/30/21 [History] Budesonide/Formoterol Fumarate [Symbicort 160-4.5 Mcg Inhaler] 2 puff INHALATION RT-BID 04/30/21 [History] HYDROcodone/APAP 10-325MG [[place] 10-325] 1 tab PO Q4H PRN 04/30/21 [History] Ipratropium [place] [Atrovent Hfa] 2 puff INHALATION RT-DAILY PRN 04/30/21 [History] Latanoprost/Pf [Latanoprost 0.005% Eye Drop] 1 drop BOTH EYES HS 04/30/21 [History] Levofloxacin [Levaquin] 500 mg PO DAILY@1700 04/30/21 [History] Losartan [Cozaar] 25 mg PO DAILY 04/30/21 [History] traMADol HCL 50 mg PO Q6H PRN 04/30/21 [History] Furosemide [Lasix] 20 mg PO DAILY #30 tab 05/03/21 [Rx] Follow up Appointment(s)/Referral(s): Yusra Maher MD [STAFF PHYSICIAN] - 05/14/21 1:15 pm () Veto Peralta MD [Primary Care Provider] - 05/11/21 11:30 am Patient Instructions/Handouts: Pleural Effusion (DC), Thoracentesis (DC) Activity/Diet/Wound Care/Special Instructions: bmp - 5 days Discharge Disposition: HOME SELF-CARE
== END 2021-05-03 13:57 | disposition home or self-care (01) | DRG 200 ==
LOC: PROCWHC3 11:18 → OBSVTOIN 13:31 → 3SCARD 13:31 → 3NCARDOBS 05-01 20:20 → 3SCARD 05-01 20:20
PROVIDERS: ADMIT Hospitalist; ATTEND Hospitalist
PROC: 0W9B30Z Drainage of Left Pleural Cavity with Drainage Device, Percutaneous Approach (ICD-10-PCS; principal; 2021-05-01)
DX: J95.811 Postprocedural pneumothorax (principal); J98.11 Atelectasis; I50.22 Chronic systolic (congestive) heart failure; Y84.4 Aspiration of fluid as the cause of abnormal reaction of the patient, or of later complication, without mention of misadventure at the time of the procedure; J44.9 Chronic obstructive pulmonary disease, unspecified; E78.5 Hyperlipidemia, unspecified; F17.210 Nicotine dependence, cigarettes, uncomplicated; I11.0 Hypertensive heart disease with heart failure; I25.10 Atherosclerotic heart disease of native coronary artery without angina pectoris; I25.2 Old myocardial infarction; I25.5 Ischemic cardiomyopathy; Z79.51 Long term (current) use of inhaled steroids; Z79.82 Long term (current) use of aspirin; Z79.899 Other long term (current) drug therapy; Z95.5 Presence of coronary angioplasty implant and graft; Z95.810 Presence of automatic (implantable) cardiac defibrillator; Z80.9 Family history of malignant neoplasm, unspecified
CPT/HCPCS: 32554; 71045; 80048; 80053; 82945; 83615; 83735; 84157; 85025; 87070; 87116; 87205; 87206; 88108; 88305; 89050; 94640; 94760; 99213

== ENCOUNTER → 2021-06-18 | Outpatient (CLI) | payer OTHER ==
--- NOTE | 2021-06-22 08:07 | PE ---
EXAMINATION TYPE: PET CT fusion skull to thigh DATE OF EXAM: 06/18/2021 COMPARISON: Outside chest CT May 21, 2021 HISTORY: Left-sided lung nodule. Recent abnormal CT. Recent thoracentesis for left sided pleural ef fusion. TECHNIQUE: Following the intravenous administration of 9.07 mCi of F-18 FDG, whole body images are p erformed from the skull base to the midthigh. Images are reviewed on the computer in the coronal, ax ial, and sagittal planes. Reconstructed rotating images are created on independent workstation and r eviewed on the computer. A localization and attenuation correction CT is performed in conjunction w ith the PET scan. Blood glucose level equals 97. SCAN: Initial Scan FINDINGS: SKULL BASE AND NECK: In region of lower pole right thyroid lobe there is a hypodense nodule, below t his may be additional slightly hyperdense nodule versus adjacent hypermetabolic supraclavicular lymph node, max SUV is 16.99 on axial image 62. Even on comparison CT difficult to localize. CHEST, MEDIASTINUM, AND HILAR REGION: Corresponding to recent CT there is background mild to moderate underlying emphysematous change. There is enlarging nonsimple left-sided pleural fluid collection fr om prior CT. There is associated compressive atelectasis. Multifocal areas of increased hypermetaboli c uptake are present, most prominent findings in the lateral left lung base, max SUV at this level is 16.99. There is heterogeneous hypermetabolic medial left basilar pleural nodule measuring 3.2 x 2.1 cm axial image 133, max SUV is 10.63 at this level. Additional multiple hypermetabolic pleural-based hyperdense soft tissue nodules are present. Subtle hypermetabolic focus within atelectatic lung could reflect pulmonary nodule axial image 112. The max SUV is 3.68. Subtle hypermetabolic focus left infr ahilar region axial image 109 max SUV 3.22 could reflect adenopathy at this level. There is abnormal hypermetabolic soft tissue in the anterior superior mediastinum along the left aspe ct of the aortic arch measuring approximately 5.8 x 3.3 cm axial image 83, max SUV is 14.25. No abnormal hypermetabolic uptake in the right lung. ABDOMEN AND PELVIS: No abnormal hypermetabolic adrenal masses. Some nonspecific bowel uptake. Normal excretion is seen. OSSEOUS STRUCTURES: Suspicious hypermetabolic subcentimeter sclerotic lesion left pubic bone axial im age 231, max SUV is 3.67. Suspicious hypermetabolic lesion left L4 vertebra without CT correlate axia l image 171, max SUV is 7.26 at this level. Suspicious subtle lytic lesion left sternum axial image 8 0 with abnormal hypermetabolic uptake, max SUV is 7.22. Subtle hypermetabolic lesion left lower cervi adriana spine axial image [address]: Nasal septum deviated to right of midline. Mild calcified plaque bilateral carotid bulb lev el. Greater than 1 cm hypodense thyroid nodule axial image 58. Enlarged pulmonary arteries consistent with underlying pulmonary artery hypertension. Pacemaker devic e redemonstrated. Moderate calcified plaque of the aorta extends into branch vessels. Facet arthropathy lower lumbar sp ine. IMPRESSION: Enlarging left-sided pleural fluid collection with hypermetabolic pleural soft tissue dep osits. Abnormal hypermetabolic mass seen anterior superior mediastinum near aortic arch. Lesion lesio n lower pole right thyroid lobe versus supraclavicular adenopathy. Osseous metastatic disease as deta iled above.
== END | disposition home or self-care (01) ==
LOC: RADPETMAIN 13:51
PROVIDERS: ATTEND Internal Medicine Hematology & Oncology
DX: C79.51 Secondary malignant neoplasm of bone (principal); C80.1 Malignant (primary) neoplasm, unspecified; R91.8 Other nonspecific abnormal finding of lung field
CPT/HCPCS: 78815; A9552

== ENCOUNTER 2021-07-02 08:39 | Day surgery (SDC) | payer OTHER ==
[2021-07-02 09:43] VITALS: TEMP 97.6
--- NOTE | 2021-07-02 10:59 | US ---
EXAMINATION TYPE: US biopsy soft tissue/muscle DATE OF EXAM: 07/02/2021 HISTORY: Pleural left chest mass, abnormal PET CT. Correlation to PET CT dated 06/18/2021 FINDINGS: Maximal barrier technique was utilized. Hand hygiene achieved with soap and water and alco hol-based hand rub. The skin overlying a suitable path to the patient's mass in the left lower chest region laterally was localized with ultrasound and the overlying skin prepped and draped. Ultrasound was utilized with sterile technique. Lidocaine was used for local anesthesia. 3 passes with a 25-g auge needle were made and aspirated specimens submitted to pathology. A skin rosalind was made with a sca lpel. An 18-gauge needle was advanced under direct ultrasound guidance and core specimen obtained of the mass. 2 additional core specimens were obtained. Specimen submitted in formalin to Pathology. Following the procedure, hemostasis achieved and the patient is discharged in stable condition withou t complication. IMPRESSION:STATUS POST ULTRASOUND GUIDED CORE BIOPSY AND FINE-NEEDLE ASPIRATION OF left chest wall pl eural mass MASS, PATHOLOGY IS PENDING. THIS PROCEDURE IS PERFORMED BY THE UNDERSIGNED.
--- NOTE | 2021-07-02 11:19 | XR ---
EXAMINATION TYPE: XR chest 1V portable DATE OF EXAM: 07/02/2021 COMPARISON: Chest CT May 21, 2021. PET/CT June 18, 2021. HISTORY: Postleft lung biopsy. TECHNIQUE: 2 frontal views of the chest are obtained. FINDINGS: There is stable moderate sized left pleural effusion or fluid collection. Associated left basilar compressive atelectasis. Visualized right lung remains clear. No mediastinal shift. No visual ized pneumothorax. Silhouetting left heart border and hemidiaphragm redemonstrated. The osseous str uctures remain intact. Single-lead pacemaker redemonstrated. IMPRESSION: As above.
[2021-07-02 11:30] VITALS: RESP 16
[2021-07-02 11:32] VITALS: BP 118/64; PULSE 74
== END 2021-07-02 11:30 | disposition home or self-care (01) ==
LOC: RADPROMAIN 08:39
PROVIDERS: ATTEND Thoracic Surgery (Cardiothoracic Vascular Surgery)
DX: C34.92 Malignant neoplasm of unspecified part of left bronchus or lung (principal)
CPT/HCPCS: 20206; 71045; 76942; 88173; 88305; 88341; 88342